=== PATIENT | female | born 1980 | race Caucasian/White ===

== ENCOUNTER 2019-12-19 09:59 | Outpatient (CLI) | payer OTHER, SELFPAY | END 2019-12-19 10:00 | disposition home or self-care (01) | DX: H92.03 Otalgia, bilateral (principal); Z96.22 Myringotomy tube(s) status; H91.8X3 Other specified hearing loss, bilateral | CPT/HCPCS: 92557; 92567 ==

== ENCOUNTER 2021-07-03 10:35 | Emergency (ER) | payer OTHER, SELFPAY ==
--- NOTE | ~2021-07-03 | XR_ITS ---
EXAMINATION: XR humerus RT EXAM DATE: 07/03/2021 11:18 INDICATION: rt humerus pain s/p fall 2 days ago. TECHNIQUE: Frontal and lateral projections of the right humerus. Correlation is made to right elbow exam same date. FINDINGS: There are no acute right humerus fractures or dislocations identified. There is no subcu taneous gas. The soft tissue is unremarkable. There are no radiopaque foreign bodies. IMPRESSION: 1. XR humerus RT exam without acute osseous findings. Reviewed, dictated and finalized at location A.
--- NOTE | ~2021-07-03 | XR_ITS ---
EXAMINATION: XR elbow RT min 3V EXAM DATE: 07/03/2021 10:58 INDICATION: rt post elbow pain s/p fall 2 days ago. TECHNIQUE: Right elbow frontal, lateral with flexion, and oblique projections obtained and reviewed. There is no prior study for comparison. FINDINGS: Right elbow anterior humeral line intact. There are no acute fractures or dislocations trip ntified. There is no subcutaneous gas. The soft tissue is unremarkable. There are no radiopaque f oreign bodies. IMPRESSION: 1. Right elbow exam without acute osseous findings. Reviewed, dictated and finalized at location A.
[2021-07-03 10:43] VITALS: BP 114/73; PULSE 87; RESP 16; TEMP 36.4; O2SAT 99
--- NOTE | 2021-07-03 10:44 | ED.UPPEXIN ---
HPI - Extremity Injury (Upper) General Chief Complaint: Extremity Injury, Upper Stated Complaint: elbow/forearm pain rt Time Seen by Provider: 07/03/21 11:00 Related Data Home Medications Medication Instructions Recorded Confirmed alprazolam 07/03/21 ipratropium bromide [Atrovent HFA] INHALATION 07/03/21 modafinil mg 07/03/21 Allergies Allergy/AdvReac Type Severity Reaction Status Date / Time No Known Allergies Allergy Unverified 06/07/19 14:58 Course Vital Signs Vital signs: Vital Signs Temperature 97.6 F 07/03/21 10:43 Pulse Rate 87 07/03/21 10:43 Respiratory Rate 16 07/03/21 10:43 Blood Pressure 114/73 07/03/21 10:43 Pulse Oximetry 99 07/03/21 10:43 Temperature 97.6 F 07/03/21 10:43 Pulse Rate 87 07/03/21 10:43 Respiratory Rate 16 07/03/21 10:43 Blood Pressure 114/73 07/03/21 10:43 Pulse Oximetry 99 07/03/21 10:43 Discharge Plan Discharge Clinical Impression: Contusion of elbow Qualifiers: Encounter type: initial encounter Laterality: right Qualified Code(s): S50.01XA - Contusion of right elbow, initial encounter Patient Disposition: Home, Self-Care Condition: Stable Instructions: Antibiotic Form, Contusion in Adults (ED), R.I.C.E. Treatment (ED) Additional Instructions: Rest, ice and elevate every 2-3 hours for 20 minutes Try to move the elbow several times an hour while awake. Try not to keep it locked in 1 position this can cause more pain and longer healing process Take ibuprofen as needed for pain 3 times a day Follow-up with your primary care provider this week New or worsening symptoms go to the ER Patient Language: Sri Lankan Prescriptions: New ibuprofen 600 mg tablet 600 mg PO TID PRN (Reason: pain) Qty: 30 RF: 0 No Action alprazolam 1 mg tablet RF: 0 Atrovent HFA 17 mcg/actuation HFA aerosol inhaler INHALATION RF: 0 modafinil 200 mg tablet RF: 0 Follow-up/Referrals: Callie,Liat Teran MD [Primary Care Provider] - 3 Days Time of Disposition: 11:32
[2021-07-03 10:46] VITALS: BP 114/73; PULSE 87; RESP 16; TEMP 36.4; O2SAT 99
--- NOTE | 2021-07-03 11:11 | ED.UPPEXIN ---
HPI - Extremity Injury (Upper) General Chief Complaint: Extremity Injury, Upper Stated Complaint: elbow/forearm pain rt Time Seen by Provider: 07/03/21 11:00 Source: patient and RN notes reviewed Mode of arrival: ambulatory Limitations: no limitations History of Present Illness HPI narrative: 41-year-old female presents to the [facility] with complaints of right upper arm pain and right elbow pain with swelling and bruising since Sunday. States that she she tripped over her dog and hit her elbow into a door frame. Decreased range of motion secondary to pain and swelling. Full range of motion of the shoulder and wrist. Strong machine sneller. Tenderness starts mid humerus all the way to the posterior elbow. No open wounds Related Data Home Medications Medication Instructions Recorded Confirmed alprazolam 07/03/21 ipratropium bromide [Atrovent HFA] INHALATION 07/03/21 modafinil mg 07/03/21 Allergies Allergy/AdvReac Type Severity Reaction Status Date / Time No Known Allergies Allergy Unverified 06/07/19 14:58 Review of Systems Review of Systems: All systems reviewed & are unremarkable except as noted in HPI and below Constitutional: Constitutional: Reports no additional constitutional complaints Eyes: Eyes: Reports no additional eye complaints ENT: Reports system reviewed and no additional complaints, except as documented Cardiovascular: Cardiovascular: Reports no additional cardiovascular complaints Respiratory: Respiratory: Reports no additional respiratory complaints Gastrointestinal: Gastrointestinal: Reports no additional gastrointestinal complaints Musculoskeletal: Musculoskeletal: Reports as per HPI, Denies myalgias, Reports arthralgias, Reports joint swelling and Denies neck pain Comments: Right humerus mid shaft to posterior elbow pain and tenderness. Swelling and bruising noted posterior elbow Integumentary/Breasts: Skin/Breast: Reports as per HPI Neurologic: Reports system reviewed and no additional complaints, except as documented Psychiatric: Psychiatric: Reports no additional psychiatric complaints Allergic/Immunologic: Allergic/Immunologic: Reports no additional allergic/immunologic complaints [facility] Past Medical History Medical History (Updated 07/03/21 @ 14:11 by Ruth Garrison) Depression with anxiety Surgical History Surgical History (Updated 07/03/21 @ 14:12 by Ruth Garrison) No significant past surgical history Social History Social History (Updated 07/03/21 @ 14:12 by Ruth Garrison) Living arrangements: with family Gender identity (if verbalized by the patient): Female Comments At the time of my signature, I reviewed and agree with the nursing past medical, surgical, social, and family history. There is no relevant family history pertinent to the patient complaint. Exam Const: General: cooperative, healthy appearing, comfortable, no acute distress, well developed and alert HENMT: Head: normal to inspection General nose exam: Normal external nose present Face and sinus: normal facial exam Mouth: Yes Normal oral and palatal mucosa present and Yes lip normal Eyes: General: appearance normal, both eyes and all related structures Alignment and Position: alignment normal Neck: Neck: normal visual inspection, full ROM and no lymphadenopathy Chest: Chest palpation & inspection: normal inspection of the chest Resp: Effort & Inspection: normal respiratory effort, able to speak in complete sentences and normal respiratory pattern Cardio: Palpation: normal PMI Rate: regular rate Back/Spine/Pelvis: Back: no CVA tenderness Cervical Spine: normal cervical lordosis Thoracic/Lumbar Spine: thoracic and lumbar spine normal to inspection Skin: General skin exam: normal color and ecchymosis (right posterior elbow) Lesions: no lesions Rashes: no rashes Trauma: no lacerations or abrasions Wounds: no wounds Neuro: General: patient oriented x3 and gait normal Speech: kendall
--- NOTE | 2021-07-03 11:16 | PC.NURSE ---
additional xray done and back in room.
== END 2021-07-03 11:34 | disposition home or self-care (01) ==
PROVIDERS: Emergency Provider Nurse Practitioner; PCP Family Medicine
DX: S50.01XA Contusion of right elbow, initial encounter (principal); W01.0XXA Fall on same level from slipping, tripping and stumbling without subsequent striking against object, initial encounter
CPT/HCPCS: 73060; 73080; 99213; A4565; G0463

== ENCOUNTER 2022-02-23 09:22 | Emergency (ER) | payer OTHER, SELFPAY ==
[2022-02-23 09:32] VITALS: BP 106/69; PULSE 93; RESP 16; TEMP 37.2; O2SAT 95
--- NOTE | 2022-02-23 09:42 | ED.URI ---
HPI - URI/Sore Throat General Chief Complaint: Fever Stated Complaint: Fever Time Seen by Provider: 02/23/22 09:42 Source: patient Mode of arrival: ambulatory Limitations: no limitations History of Present Illness HPI Narrative: 41-year-old female presents with complaint of nasal congestion, headache, fever 102 Fahrenheit that started this morning. Patient is currently taking amoxicillin for approximately 1 week for sinus infection. Reports she did not feel this bad with her sinus infection. Denies nausea vomiting diarrhea. Reports that she is feeling very tired. No cough or shortness of breath. All systems reviewed and negative except as noted above. Related Data Home Medications Medication Instructions Recorded Confirmed albuterol sulfate 90 mcg/actuation 1 puff INHALATION Q4H PRN 07/13/21 02/23/22 aerosol inhaler amoxicillin-pot clavulanate 1 tablet PO BID 02/23/22 02/23/22 phentermine 37.5 mg PO DAILY 02/23/22 02/23/22 Allergies Allergy/AdvReac Type Severity Reaction Status Date / Time No Known Allergies Allergy Verified 02/23/22 10:14 Review of Systems Review of Systems: CONSTITUTIONAL: Reports fever, chills, or sweats. EYES: Denies visual changes, redness, or discharge. ENT: Reports rhinorrhea, congestion. Denies sore throat, or otalgia. CARDIOVASCULAR: Denies chest pain, palpitations, or edema. RESPIRATORY: Denies cough or dyspnea. GASTROINTESTINAL: Denies abdominal pain, nausea, vomiting, or diarrhea. GENITOURINARY: Denies dysuria or hematuria. SKIN: Denies rash or itching. MUSCULOSKELETAL: Denies back pain, joint pain, or myalgia. NEUROLOGIC: Denies headache, numbness, or weakness. PSYCHIATRIC: Denies anxiety or depression. All other systems reviewed are negative, except as documented in HPI. [facility] Past Medical History Medical History Depression with anxiety Surgical History Surgical History No significant past surgical history Family History Family History Mother Hypertension Thyroid disorder Sibling Asthma Grandparent Lymphoma Cerebrovascular accident Depression Grandparent Alcoholism Lung cancer Social History Social History Smoking status: Current every day smoker Tobacco type: cigarettes Alcohol intake: current Substance use: current Gender identity (if verbalized by the patient): Female Comments At time of signature, agree with nursing past medical, surgical, social and family history. There is no relevant family history pertinent to the presenting complaint. Exam Narrative: GENERAL: This is a well-nourished, well-developed patient, patient is ill-appearing but in no distress. HEAD: normocephalic, atraumatic. EYES: PERRL. Sclera clear/white. Vision is grossly intact. EARS: External ears normal, auditory canals clear and without drainage, TMs normal without perforation. Hearing grossly intact. NOSE: External nose normal with clear nasal drainage. THROAT: Mucous membranes moist, posterior pharynx clear. NECK: Neck supple, non-tender without lymphadenopathy, masses or thyromegaly. CARDIOVASCULAR: Regular rate and rhythm without murmurs, gallops, or rubs. RESPIRATORY: Clear to auscultation. Breath sounds equal bilaterally. No wheezes, rales, or rhonchi. SKIN: warm, Dry, intact with no suspicious lesions or rash, good texture and turgor. NEURO: awake, alert, and oriented to person, place and time. There were no obvious focal neurologic abnormalities. EXTREMITIES: Normal range of motion to all extremities. Course Course Level of Care: Express Care Visit Vital Signs Vital signs: Vital Signs Temperature 37.2 C 02/23/22 09:32 Pulse Rate 93 02/23/22 09:32 Respiratory Rate 16 02/23/22 09:32 Blood Pressure 106/69 05
== END 2022-02-23 10:21 | disposition home or self-care (01) ==
PROVIDERS: Emergency Provider Nurse Practitioner Family; PCP Family Medicine
DX: U07.1 COVID-19 (principal); F17.200 Nicotine dependence, unspecified, uncomplicated
CPT/HCPCS: 87426; 87804; 99213; C9803; G0463

== ENCOUNTER 2022-03-29 01:21 | Day surgery (SDC) | payer OTHER, SELFPAY ==
[2022-03-24 12:12] VITALS: BMI 29.2
[2022-03-29] VITALS (11 sets, daily range): BP systolic 112–131; BP diastolic 64–82; PULSE 65–77; RESP 13–23; TEMP 36.1; O2SAT 96–100; BMI 29.8
--- NOTE | ~2022-03-29 | XR_ITS ---
EXAMINATION: XR ERCP DATE: 03/29/2022 10:10 CDT INDICATION: POSSIBLE STONE, PANCREATIC STENT INSERTED . TECHNIQUE: 14 fluoroscopic images of the upper abdomen were obtained during ERCP. I was not present d uring the procedure. Fluoroscopy exposure time was 817 seconds. Cumulative dose 224.9 mGy. COMPARISON: None. FINDINGS: Endoscopic catheterization of the pancreatic and common bile ducts. No filling defect definitely iden tified in these fluoroscopic images. A balloon is inflated in the upstream common bile duct and withd rawn over subsequent images. Truncated cystic duct status post cholecystectomy. A pancreatic stent is present in the final image. IMPRESSION: Fluoroscopic documentation of ERCP. Reviewed, dictated and finalized at location K.
[2022-03-29] MEDS: LACTATED RINGERS 1,000 ML 150 ML IV CONT ×2 (09:49→14:33)
--- NOTE | 2022-03-29 10:09 | WPDANESEPPF ---
Anes - Initial Pre Proc Eval Procedure: Operation Date: 03/29/22 10:45 Proposed Procedures p Endoscopic Retro Cholangiopancreatogram - Tolu Restrepo MD Date/Time: 03/29/22 10:09 Surgeon: Tolu Restrepo MD Pre Op Diagnosis: bile duct stone Patient Data Age: 41 Gender: F Height: 1.68 m Weight: 83.8 kg Last Vital Signs Temp 97 F L 03/29/22 09:30 Pulse 71 03/29/22 09:30 Resp 18 03/29/22 09:30 BP 112/70 03/29/22 09:30 Pulse Ox 100 03/29/22 09:30 O2 Del Method Room Air 03/29/22 09:30 Allergies Allergy/AdvReac Type Severity Reaction Status Date / Time No Known Allergies Allergy Verified 03/29/22 09:35 Home Medications Medication Instructions Recorded Confirmed Type albuterol sulfate 90 mcg/actuation 1 puff inhalation Q4H PRN 07/13/21 03/29/22 History aerosol inhaler Shortness Of Breath phentermine 37.5 mg tablet 37.5 mg PO DAILY 02/23/22 03/29/22 History Patient hx anesthesia problems: none Family hx anesthesia problems: none Results Review: All pre-operative results and documents have been reviewed as part of the pre-operative evaluation. [facility] Past Medical History Medical History Depression with anxiety Non-specific filling defect of common bile duct RUQ pain Surgical History Surgical History No significant past surgical history S/P hernia surgery Family History Family History Mother Hypertension Thyroid disorder Sibling Asthma Grandparent Lymphoma Cerebrovascular accident Depression Grandparent Alcoholism Lung cancer Social History Social History Smoking packs per day: 1.25 Smoking cigarettes per day: 25.0 Years smoked: 20 Smoking pack-years: 25.00 Smoking status: Former smoker Tobacco type: cigarettes Second hand tobacco smoke exposure: No Smoking end date: 03/27/22 Additional smoking assessment comments: recently quit smoking 28 hours ago Alcohol intake: current Drinks per week: 2 Alcohol use details: socially Substance use: current Substance use type: marijuana Other substance usage details: 4-5 times weekly Living arrangements: with family Additional living arrangements comments: spouse and children Gender identity (if verbalized by the patient): Female Spiritual care concerns: No Anes - Eval Final PreProcedure Day of Procedure 03/29/22 10:09 Patient weight: overweight Heart: regular rate and rhythm Lungs: clear to auscultation Airway: Mallampati scale class II Neurological: alert and oriented Last oral intake: >/= 8 hours ASA classification: II Emergent: no Anesthetic plan: proceed Anesthesia type and monitoring: general ETT and standard monitoring Results Review: All pre-operative results and documents have been reviewed as part of the pre-operative evaluation. Informed Consent: The patient's anesthetic plan and its attendant risks and benefits were discussed with the patient/family/POA. Questions were solicited and answers provided to the satisfaction of the patient/family/POA.
--- NOTE | 2022-03-29 10:13 | WPDHPUPDATE1 ---
History and Physical Update Update Date/Time: 03/29/22 10:13 History and Physical has been reviewed, including an updated exam of the patient. There are NO changes in the patient's condition. Risks, benefits, and alternatives have been discussed and questions answered. Patient agrees to proceed with procedure.
[2022-03-29] MEDS: INDOMETHACIN 50 MG SUPP.RECT RECTAL (10:49)
[2022-03-29] MEDS: fentaNYL CITRATE INJ (*CRX) 100 MCG/2 ML VIAL 25 MCG IV PUSH (13:56)
--- NOTE | 2022-03-29 14:05 | SUR.PHASEII ---
Patient complained of chest tightness with a pain scale rating of 7/10. Informed Dr. Jansen of patient's condition. Vitals stable. 3 lead EKG appears to be in sinus rhythm. Patient appears to be very anxious. Has history of smoking tobacco and recently quit. 25mcg of fentanyl ordered per Dr. Jansen. Medication administered and patient is now resting comfortably in bed and tolerating fluids.
--- NOTE | 2022-03-29 14:23 | SUR.PHASEII ---
After administering 25 mcg of fentanyl, patient still complained of 7/10 chest tightness and pain radiating to back. LEANN Denson encouraged patient to use at home inhaler. Patient has relief and now reports pain of 2/10. Encouraged to keep belching to get rid of air from procedure. Patient states she feels well enough to go home. Vitals stable.
--- NOTE | 2022-03-30 09:12 | WPDANESPN ---
Anes - Prog Note Post-Op Date/Time: 03/30/22 09:12 Cardiovascular status: normal Respiratory status: normal Airway patency: baseline Mental status: baseline Post-Op hydration status: normal Vital Signs: Last Vital Signs Temp 97.0 F L 03/29/22 12:55 Pulse 70 03/29/22 14:25 Resp 19 03/29/22 14:25 BP 122/71 03/29/22 14:25 Pulse Ox 99 03/29/22 14:25 O2 Del Method Room Air 03/29/22 14:25 O2 Flow Rate 4 03/29/22 13:25 Pain Score (VAS): 10/31 Post-procedural complaints: none Patient Feedback: Patient satisfied with anesthetic care.
== END 2022-03-29 14:35 | disposition home or self-care (01) ==
PROVIDERS: PCP Family Medicine; Visit Provider Internal Medicine Gastroenterology
PROC: (CPT 43260; principal; 2022-03-29 10:45)
DX: K83.8 Other specified diseases of biliary tract (principal); F12.90 Cannabis use, unspecified, uncomplicated; F17.210 Nicotine dependence, cigarettes, uncomplicated; Z98.890 Other specified postprocedural states; Z87.19 Personal history of other diseases of the digestive system
CPT/HCPCS: 43274; 74329; A9270; C2625; J1100; J2405; J2704; J3010; J7120

== ENCOUNTER 2022-03-30 07:39 | Inpatient (IN) | payer OTHER, SELFPAY ==
[2022-03-30] VITALS (14 sets, daily range): BP systolic 110–130; BP diastolic 70–79; PULSE 55–82; RESP 11–26; TEMP 36.3–36.9; O2SAT 94–99; BMI 32.0
--- NOTE | ~2022-03-30 | XR_ITS ---
EXAMINATION: XR chest 2V 03/30/2022 08:56 INDICATION: Right-sided chest pain PROCEDURE: 2 view chest COMPARISON: No prior studies for comparison. FINDINGS: The lungs are clear. The cardiomediastinal silhouette is within normal limits. There are no pleural effusions. There is no pneumothorax suspected. IMPRESSION: 1: NO ACUTE CARDIOPULMONARY DISEASE. Reviewed, dictated and finalized at location B.
--- NOTE | ~2022-03-30 | CT_ITS ---
EXAMINATION: CT abdomen pelvis wo con DATE: 03/30/2022 09:34 INDICATION: Biliary stent dysfunction. Right upper quadrant pain status post recent ERCP. TECHNIQUE: Computed tomography (CT) of the abdomen and pelvis was performed without intravenous contr ast. The dose-length product was 680.20 mGy-cm. Automated exposure control and iterative reconstructi on technique were employed. COMPARISON: None. FINDINGS: Lung bases are unremarkable. Heart size normal. No significant pleural or pericardial effus ion. No significant vascular abnormality. Mildly enlarged retroperitoneal lymph nodes, likely reactiv e. There are surgical changes consistent with previous ventral abdominal wall hernia repair and teofilo cystectomy. No biliary stent is identified. There is hepatomegaly. No significant abnormality of the spleen, pancreas, adrenal glands or kidneys. There is a small fat-containing right inguinal hernia. N onobstructive bowel gas pattern. No free air or free fluid. No abnormal pelvic masses or fluid collec tions. IMPRESSION: 1. No acute abdominal abnormality. Reviewed, dictated and finalized at location B.
--- NOTE | ~2022-03-30 | CT_ITS ---
EXAMINATION: CT abdomen pelvis wo con DATE: 04/03/2022 08:36 INDICATION: Acute pancreatitis. Generalized abdominal pain. TECHNIQUE: Computed tomography (CT) of the abdomen and pelvis was performed without intravenous contr ast. Automated exposure control and iterative reconstruction technique were employed. The dose-length product was 890.53 mGy-cm. COMPARISON: CT abdomen and pelvis 03/30/2022 FINDINGS: There are small pleural effusions, left worse than right. There are peripheral airspace opa cities in the lower lobes. There is smooth septal thickening bilaterally, consistent with pulmonary e ar. The heart size is normal. No pericardial effusion. The liver and spleen are normal. There are c hanges of cholecystectomy. There is fat stranding around the pancreas, consistent with acute intersti tial pancreatitis. There are changes of ventral hernia repair. The adrenal glands and kidneys are nor mal. There is no urolithiasis. There is a right inguinal hernia containing fat. There is a pancreatic stent in the lumen of the sigmoid colon. There are no dilated loops of bowel. The appendix is normal . There are no pathologically enlarged lymph nodes. There is a small volume of ascites. There is mode rate lower lumbar spondylosis. IMPRESSION: 1. Acute interstitial pancreatitis. Pancreatic stent now in the lumen of the sigmoid colon. 2. Small volume of ascites. 3. Small pleural effusions. 4. Mild pulmonary edema. 5. Peripheral airspace opacities in the lower lobes of the lungs, consistent with atelectasis versus pneumonia. Reviewed, dictated and finalized at location B. IMPRESSION: 1. Acute interstitial pancreatitis. Pancreatic stent now in the lumen of the si gmoid colon. 2. Small volume of ascites. 3. Small pleural effusions. 4. Mild pulmonary edema. 5. Peripheral airspace opacities in the lower lobes of the lungs, consistent wi th atelectasis versus pneumonia.
--- NOTE | 2022-03-30 07:51 | ECG_ITS ---
Measurements Intervals [place] Rate: 81 P: 73 ID: [id number] QRS: 68 QRSD: 90 T: 42 QT: 346 QTc: 402 Interpretive Statements SINUS RHYTHM NO PREVIOUS ECG AVAILABLE FOR COMPARISON Electronically Signed On 03-30-2022 20:32:26 CDT by Melania Dorado M.D.
--- NOTE | 2022-03-30 07:59 | PC.NURSE ---
Patient off unit to Radiology for CXR.
[2022-03-30 08:17] LABS: Basophils Absolute Auto 0.1 K/mm3 (0.0-0.1); Basophils Percent Auto 0.3 % (0.2-1.2); Eosinophils Percent Auto 0.2 % (0-4.4); Hematocrit 43.3 % (37.0-47.0); Hemoglobin 15.1 g/dL (12.0-15.0); Immature Granulocyte Absolute 0.17 K/mm3 (0.00-0.031); Immature Granulocyte Percent A 0.8 % (0-0.5); Lymphocytes Absolute Auto 2.91 K/mm3 (0.9-3.2); Lymphocytes Percent Auto 13.3 % (18.3-44.2); Mean Corpuscular HGB Conc 34.9 g/dl (32-36); Mean Corpuscular Hemoglobin 32.8 pg (26-34); Mean Corpuscular Volume 93.9 fl (80-100); Mean Platelet Volume 9.2 fl (7.4-10.4); Monocytes Absolute Auto 1.8 K/mm3 (0.1-0.6); Monocytes Percent Auto 8.2 % (2.6-8.5); Neutrophils Absolute Auto 16.9 K/mm3 (1.3-6.7); Neutrophils Percent Auto 77.2 % (45.5-73.1); Platelet Count Result 284 k/mm3 (150-375); Red Blood Count 4.61 M/mm3 (4.2-5.4); Red Cell Distribution Width 12.4 % (11.5-14.5); White Blood Count 21.8 K/mm3 (4.5-10.0)
[2022-03-30 08:31] LABS: Alanine Aminotransferase 210 U/L (6-35); Albumin Level 4.2 g/dL (3.5-5.1); Alkaline Phosphatase 116 U/L (38-126); Anion Gap 6 mmol/L (8-16); Aspartate Amino Transferase 338 U/L (14-36); Bilirubin,Total 1.6 mg/dL (0.2-1.3); Blood Urea Nitrogen 12 mg/dL (7-17); Carbon Dioxide 28 mmol/L (22-30); Chloride 104 mmol/L (98-107); Estimated CRCL calculation 96 ml/min; Estimated Glomerular Filt Rate > 60; Glucose 138 mg/dL (65-110); Potassium 3.8 mmol/L (3.4-5.0); Sodium 138 mmol/L (137-145)
[2022-03-30] MEDS: SODIUM CHLORIDE 0.9% IV 1,000 ML 999 ML IV CONT (08:31)
[2022-03-30] MEDS: MORPHINE SULFATE (*CRX) 4 MG/ML INJ IV PUSH ×3 (08:31→14:41)
[2022-03-30] MEDS: ONDANSETRON INJ 4 MG/2 ML VIAL IV PUSH ×2 (08:32→23:05)
[2022-03-30 08:46] LABS: Troponin I < 0.012 ng/mL (0.000-0.034)
--- NOTE | 2022-03-30 08:48 | PC.NURSE ---
Patient off unit to Radiology.
[2022-03-30 09:10] LABS: Lipase > 40000 U/L (23-300)
--- NOTE | 2022-03-30 09:23 | ED.ABDPAIN ---
HPI - Abdominal Pain General Chief Complaint: Abdominal Pain Stated Complaint: RUQ pain, s/p ERCP Time Seen by Provider: 03/30/22 07:40 History of Present Illness HPI narrative: Patient is a 41-year-old female who presents ER with chest pain epigastric pain. Patient underwent ERCP yesterday with placement of biliary stent. Dr. Hernandez who is her GI physician. Since going home she has developed pain in her chest going around her right side towards the back. She is on a liquid diet. No nausea or vomiting. No fevers or chills or sweats. Patient is found no alleviating factors. Related Data Home Medications Medication Instructions Recorded Confirmed albuterol sulfate 90 mcg/actuation 1 puff inhalation Q4H PRN 07/13/21 03/30/22 aerosol inhaler Shortness Of Breath phentermine 37.5 mg tablet 37.5 mg PO DAILY 02/23/22 03/30/22 Allergies Allergy/AdvReac Type Severity Reaction Status Date / Time No Known Allergies Allergy Verified 03/29/22 09:35 Review of Systems Review of Systems: All systems reviewed & are unremarkable except as noted in HPI and below Constitutional: Constitutional: Denies chills and Denies fever(s) ENT: Denies nasal congestion and Denies sore throat Cardiovascular: Cardiovascular: Reports chest pain, Denies rapid heart rate and Denies radiating jaw, neck or arm pain Respiratory: Respiratory: Denies cough and Denies dyspnea Gastrointestinal: Gastrointestinal: Reports abdominal pain, Denies nausea and Denies vomiting PMFSH Past Medical History Medical History Asthma COVID-19 (02/2022) Depression with anxiety Obstructive sleep apnea Tobacco use Surgical History Surgical History (Updated 03/30/22 @ 15:45 by Kita Blankenship PA-C) History of arthroscopy of right knee History of bladder surgery History of cholecystectomy History of hysterectomy History of tubal ligation History of tympanostomy tube placement History of umbilical hernia repair Family History Family History Mother Hypertension Thyroid disorder Sibling Asthma Grandparent Lymphoma Cerebrovascular accident Depression Grandparent Alcoholism Lung cancer Social History Social History (Updated 03/30/22 @ 15:46 by Kita Blankenship PA-C) Social History: Surrogate decision maker: Dario Simpson, spouse. Code status: Full code. Smoking packs per day: 1.25 Smoking cigarettes per day: 25.0 Years smoked: 20 Smoking pack-years: 25.00 Smoking status: Former smoker Tobacco type: cigarettes Second hand tobacco smoke exposure: No Alcohol intake: current Drinks per week: 2 Alcohol use details: socially Substance use: current Substance use type: marijuana Other substance usage details: 4-5 times weekly Additional living arrangements comments: Lives in [place] with spouse and children. Spiritual care concerns: No Exam Narrative: GENERAL: Uncomfortable-appearing, well-nourished, and in no acute distress. HEAD: Normocephalic, atraumatic. EYES: PERRL and EOMI. CHEST: Clear to auscultation. No respiratory distress. HEART: Regular rate and rhythm. Normal peripheral pulses. ABDOMEN: Soft, epigastric tenderness with guarding, nondistended, normal active bowel sounds. EXTREMITIES: Normal range of motion. No edema. SKIN: Warm, dry, no rash. NEURO: Alert and oriented x3. PSYCH: Normal mood and affect. Course Course Emergency Course: GI consulted. Admit to hospitalist service. Started on Zosyn given elevated white blood cell count. At risk for cholangitis but likely postprocedural pancreatitis. Vital Signs Vital signs: Vital Signs Temperature 98.3 F 03/30/22 07:46 Pulse Rate 80 03/30/22 07:46 Respiratory Rate 20 03/30/22 07:46 Blood Pressure 130/75 03/30/22 07:46 Pulse Oximetry 99 03/30/22 07:46 Oxygen Delivery Room Air 03/30/22 07:46 Temperature 97.3 F L 03/30/22 14:00 Pulse Rat
[2022-03-30 09:39] LABS: Lactic Acid Reflex 1.5 mmol/L (0.7-2.0)
[2022-03-30] MEDS: HYDROmorphone HCL INJ (*CRX) 1 MG/ML SYR IV PUSH ×2 (10:09→23:05)
[2022-03-30 11:37] LABS: Troponin I < 0.012 ng/mL (0.000-0.034)
[2022-03-30] MEDS: SODIUM CHLORIDE 0.9% IV 1,000 ML 200 ML IV CONT ×2 (12:30→17:56)
[2022-03-30 14:53] LABS: Troponin I < 0.012 ng/mL (0.000-0.034)
--- NOTE | 2022-03-30 15:30 | PM.IMHP ---
H&P: HPI History of Present Illness Date/Time: 03/30/22 15:30 Chief Complaint: Abdominal and chest pain. Narrative: This is a 41-year-old female with history of multiple ventral hernia repairs, asthma, and a recent diagnosis of obstructive sleep apnea who presented to the emergency department via EMS from home for evaluation of abdominal and chest pain. She was referred to Dr. Restrepo after she was found to have a possible filling defect in the common hepatic duct on imaging obtained at an outside facility for evaluation of abdominal pain. She had an ERCP done as an outpatient yesterday with sphincterotomy and deployment of a pancreatic stent to prevent pancreatitis and facilitate bile duct cannulation. No filling defect, stone, or stricture was noted and only a small amount of sludge was seen in an otherwise clear bile duct. Last evening she was feeling gas-like discomfort in her chest and at about 03:00 she developed intense pain in the upper abdomen, radiating to the right upper quadrant and around to the back. It has been nearly constant since the outset and she has not found any significant alleviating factors. Aggravating factors include palpation and movement. Vital signs were stable on arrival to the emergency department. Pertinent labs include a white blood cell count of 21.8, total bilirubin 1.6, AST 338, ALT 210, alkaline phosphatase 116, and lipase greater than 40,000. CT of the abdomen and pelvis showed no acute abnormalities and specifically no abnormalities were noted of the pancreas. She is being admitted in this setting for further treatment and evaluation. At this time she is a bit more comfortable after receiving Dilaudid. She denies fever, chills, sweats, shortness of breath, nausea, vomiting, and diarrhea. Review of Systems Review of Systems: Twelve systems were reviewed. She has been having problems with ear pain and is scheduled to have bilateral tubes placed per Dr. Perez for serous otitis media bilaterally. [facility], [facility] Past Medical History Medical History Asthma COVID-19 (02/2022) Depression with anxiety Obstructive sleep apnea Tobacco use Surgical History Surgical History History of arthroscopy of right knee History of bladder surgery History of cholecystectomy History of hysterectomy History of tubal ligation History of tympanostomy tube placement History of umbilical hernia repair Family History Family History Mother Hypertension Thyroid disorder Sibling Asthma Grandparent Lymphoma Cerebrovascular accident Depression Grandparent Alcoholism Lung cancer Social History Social History (Updated 03/30/22 @ 21:14 by Kita Blankenship PA-C) Social History: Surrogate decision maker: Dario Simpson, spouse. Code status: Full code. Smoking packs per day: 1.25 Smoking cigarettes per day: 25.0 Years smoked: 20 Smoking pack-years: 25.00 Smoking status: Former smoker Tobacco type: cigarettes Second hand tobacco smoke exposure: No Alcohol intake: current Drinks per week: 2 Alcohol use details: socially Substance use: current Substance use type: marijuana Other substance usage details: 4-5 times weekly Additional living arrangements comments: Lives in [place] with spouse and children. Spiritual care concerns: No Meds Home Medications and Allergies Home Medications Medication Instructions Recorded Confirmed Type albuterol sulfate 90 mcg/actuation 1 puff inhalation Q4H PRN 07/13/21 03/30/22 History aerosol inhaler Shortness Of Breath phentermine 37.5 mg tablet 37.5 mg PO DAILY 02/23/22 03/30/22 History Allergies Allergy/AdvReac Type Severity Reaction Status Date / Time No Known Allergies Allergy Verified 03/29/22 09:35 Vital Signs Vital Signs - 24 hr 03/30/22 07:46 03/30/22 07:56 03/30/22 09:11 Temperature 98.
[2022-03-30] MEDS: HYDROmorphone HCL INJ (*CRX) 1 MG/ML SYR 0.5 MG IV PUSH ×2 (16:59→20:18)
[2022-03-31] MEDS: SODIUM CHLORIDE 0.9% IV 1,000 ML 200 ML IV CONT ×4 (00:01→19:56)
[2022-03-31] MEDS: HYDROmorphone HCL INJ (*CRX) 1 MG/ML SYR IV PUSH ×6 (02:02→21:44)
[2022-03-31] MEDS: KETOROLAC 30 MG/ML VIAL (*BKC) IV PUSH (04:36)
[2022-03-31 05:15] VITALS: BP 147/82; PULSE 62; RESP 16; TEMP 36.1; O2SAT 96
--- NOTE | 2022-03-31 06:06 | PCRCNOTE ---
patient stated that she completed a sleep study, but the home unit is on back-order; She refused use of the hospital unit
[2022-03-31 06:07] VITALS: O2SAT 96
[2022-03-31 06:19] LABS: Basophils Percent Auto 0.3 % (0.2-1.2); Eosinophils Percent Auto 0.2 % (0-4.4); Hematocrit 37.9 % (37.0-47.0); Hemoglobin 12.7 g/dL (12.0-15.0); Immature Granulocyte Absolute 0.12 K/mm3 (0.00-0.031); Immature Granulocyte Percent A 0.9 % (0-0.5); Lymphocytes Absolute Auto 1.54 K/mm3 (0.9-3.2); Mean Corpuscular HGB Conc 33.5 g/dl (32-36); Mean Corpuscular Hemoglobin 32.7 pg (26-34); Mean Corpuscular Volume 97.7 fl (80-100); Mean Platelet Volume 9.7 fl (7.4-10.4); Monocytes Percent Auto 7.4 % (2.6-8.5); Neutrophils Absolute Auto 11.2 K/mm3 (1.3-6.7); Neutrophils Percent Auto 80.2 % (45.5-73.1); Platelet Count Result 226 k/mm3 (150-375); Red Blood Count 3.88 M/mm3 (4.2-5.4); Red Cell Distribution Width 13.1 % (11.5-14.5)
[2022-03-31 06:49] LABS: Alanine Aminotransferase 455 U/L (6-35); Albumin Level 3.5 g/dL (3.5-5.1); Alkaline Phosphatase 192 U/L (38-126); Anion Gap 4 mmol/L (8-16); Aspartate Amino Transferase 263 U/L (14-36); Bilirubin,Total 4.3 mg/dL (0.2-1.3); Blood Urea Nitrogen 11 mg/dL (7-17); CRP 1.6 mg/dL (<1.0); Calcium 7.7 mg/dL (8.4-10.2); Carbon Dioxide 26 mmol/L (22-30); Chloride 107 mmol/L (98-107); Estimated CRCL calculation 111 ml/min; Estimated Glomerular Filt Rate > 60; Glucose 132 mg/dL (65-110); Potassium 3.9 mmol/L (3.4-5.0); Sodium 137 mmol/L (137-145)
[2022-03-31] MEDS: ONDANSETRON INJ 4 MG/2 ML VIAL IV PUSH (07:52)
[2022-03-31 08:00] VITALS: O2SAT 96
[2022-03-31 08:13] LABS: Lipase 9660 U/L (23-300)
[2022-03-31 09:20] VITALS: O2SAT 94
--- NOTE | 2022-03-31 13:03 | PCCCNOTE ---
On 03/31/22, the student, [Irene Garcia], provided care and completed [facility] documentation on this patient. I have reviewed the student's documentation and agree with the findings.
--- NOTE | 2022-03-31 13:16 | WPDGICN ---
Assessment and Plan Assessment and plan (1) Acute pancreatitis after endoscopic retrograde cholangiopancreatography (ERCP): Code(s): K91.89 - Other postprocedural complications and disorders of digestive system; K85.90 - Acute pancreatitis without necrosis or infection, unspecified Status: Acute Assessment and Plan: unfortunately patient developed pancreatitis after ercp despite using pancreatic stent and indomethacin as preventive measures she is npo status- ok to have ice chips supportive care, pain control, monitor liver enzymes (2) Elevated LFTs: Code(s): R79.89 - Other specified abnormal findings of blood chemistry Status: Acute Assessment and Plan: from pancreatitis and recent ercp (I did not find any filling defect or stones, performed nice sphincterotomy) continue to monitor (3) Leukocytosis: Code(s): D72.829 - Elevated white blood cell count, unspecified Status: Acute Assessment and Plan: from pancreatitis monitor (4) RUQ pain: Code(s): R10.11 - Right upper quadrant pain Status: Acute (5) History of cholecystectomy: Code(s): Z90.49 - Acquired absence of other specified parts of digestive tract Status: Acute GI Consult Note Consult date/time: 03/31/22 13:16 Reason for consult: epigastric pain, post-ERCP pancreatitis HPI: Swathi Simpson is a 41 year old female that initially came to see me last month to the office because constant pain in mid abdomen/right side for last few months. Finally outside CT scan showed possible filling defect in common hepatic duct- could be sludge or stone, liver enzymes were normal and denies previous episode of pancreatitis.?She had cholecystectomy years ago and had umbilical hernia repair with mesh x3 (apparently had adhesions). Finally she came for outpatient ERCP on 03/29/2022, I performed?sphincterotomy and deployment of a small 4Fx5cm pancreatic stent to prevent pancreatitis and facilitate bile duct cannulation (initially was difficult to cannulate bile duct). No filling defect, stone, or stricture was noted and only a small amount of sludge was seen in an otherwise clear bile duct. Patient went home but then started having upper abdominal discomfort with nausea, also bloating sensation and came to ER. She was found to have pancreatitis, leukocytosis and diagnosed with post-ERCP pancreatitis (she also received indomethacin suppository prior ERCP). She is npo status, still with abdominal pain. CT scan a/p reviewed, no acute findings. Review of Systems Review of Systems: uncomfotable because of pain Constitutional: Constitutional: Denies headache(s) and Denies weakness Eyes: Eyes: Denies blurry vision ENT: Reports Normal hearing present, Denies headache(s) and Denies neck pain Cardiovascular: Cardiovascular: Denies chest pain and Denies dyspnea Respiratory: Respiratory: Denies dyspnea Gastrointestinal: Gastrointestinal: Reports abdominal pain and Reports nausea Genitourinary: Genitourinary: Denies dysuria Musculoskeletal: Musculoskeletal: Denies neck pain Integumentary/Breasts: Skin/Breast: Denies dry skin Neurologic: Reports Normal hearing present, Denies headache(s) and Denies weakness Psychiatric: Psychiatric: Denies anxiety Endocrine: Endocrine: Denies change in body appearance Hematologic/Lymphatic: Hematologic/Lymphatic: Denies easy bleeding Allergic/Immunologic: Allergic/Immunologic: Denies urticaria PMFSH Past Medical History Medical History Asthma COVID-19 (02/2022) Depression with anxiety Obstructive sleep apnea Tobacco use Surgical History Surgical History (Updated 03/31/22 @ 13:24 by Tolu Restrepo MD) History of arthroscopy of right knee History of bladder surgery History of cholecystectomy History of hysterectomy History of tubal ligation History of tympanostomy tube placement History of umbilical hernia repair Family History Family History
--- NOTE | 2022-03-31 13:59 | PM.IMPN ---
Progress Note: A&P Assessment and Plan (1) Acute pancreatitis after endoscopic retrograde cholangiopancreatography (ERCP): Code(s): K91.89 - Other postprocedural complications and disorders of digestive system; K85.90 - Acute pancreatitis without necrosis or infection, unspecified Status: Acute Assessment and Plan: Post ERCP pancreatitis, improving, appreciate GI consultation, continue ice chips, advance diet as tolerated per GI recommendations, IV fluids (2) Leukocytosis: Code(s): D72.829 - Elevated white blood cell count, unspecified Status: Acute Assessment and Plan: White blood cell count significantly improved today, continue Zosyn, do not suspect underlying infection, will discontinue antibiotics and white count normalizes if patient continues to appear non infectious (3) Elevated LFTs: Code(s): R79.89 - Other specified abnormal findings of blood chemistry Status: Acute Assessment and Plan: Elevated LFTs likely secondary to pancreatitis, monitor (4) Tobacco use: Code(s): Z72.0 - Tobacco use Status: Acute Assessment and Plan: Smoking cessation is encouraged. (5) Obstructive sleep apnea: Code(s): G47.33 - Obstructive sleep apnea (adult) (pediatric) Status: Acute Assessment and Plan: CPAP will be provided for the patient to use while hospitalized. (6) Asthma: Code(s): J45.909 - Unspecified asthma, uncomplicated Status: Acute Assessment and Plan: No acute issues. Albuterol inhaler available as needed. Subjective Date/time seen: 03/31/22 13:59 Interval history: Patient lying in bed somewhat uncomfortable due to her abdominal pain. She is due for pain medication and apparently it is coming up from pharmacy now. She denies fevers or chills. No nausea vomiting diarrhea. She is only complaining of moderate to severe abdominal pain that is somewhat better than admission. Review of Systems Review of Systems: Twelve point review of systems was reviewed and is negative except as noted in the HPI Exam Narrative: General: Patient resting comfortably in bed, no acute distress HEENT: Atraumatic, normocephalic, mucous membranes moist CV: Regular rate and rhythm, S1, S2, no murmurs rubs or gallops noted Lungs: Clear to auscultation bilaterally, no rales or crackles noted, no wheezes, good air entry Abdomen: Diffusely tender without peritoneal signs Extremities: Normal to inspection, no edema noted Skin: No rashes noted, no lesions or wounds seen Psych: Euthymic, normal affect Neuro: Cranial nerves 2-12 grossly intact, strength 5/5 upper and lower extremities noted Objective Data Vital Signs Vital Signs: Vital Signs - 24 hr 03/30/22 14:00 03/30/22 15:49 03/30/22 20:00 Temperature 97.3 F L Pulse Rate 63 Respiratory Rate 16 Blood Pressure 123/79 Pulse Oximetry 98 98 Oxygen Delivery Room Air Room Air 03/30/22 22:00 03/31/22 05:15 03/31/22 06:07 Temperature 98.4 F 96.9 F L Pulse Rate 55 L 62 Respiratory Rate 16 16 Blood Pressure 123/70 147/82 H Pulse Oximetry 96 96 96 Oxygen Delivery Room Air 03/31/22 09:20 03/31/22 08:00 Temperature Pulse Rate Respiratory Rate Blood Pressure Pulse Oximetry 94 96 Oxygen Delivery Room Air Room Air Intake/Output Intake/Output: Intake & Output 03/28/22 03/29/22 03/30/22 03/31/22 23:59 23:59 23:59 23:59 Intake Total 3350 1150 Output Total 300 1200 Balance 3050 -50 Meds/Results Medications: Active Medications Generic Name Dose Route Start Last Admin Trade Name Freq PRN Reason Stop Dose Admin Albuterol 1 puff 03/30/22 15:50 Albuterol Sulfate (*Sp) Aerosol 1 Puff INHALATION Q4H PRN Shortness Of Breath Hydromorphone HCl 1 mg 03/30/22 23:00 03/31/22 10:56 Hydromorphone Hcl Inj (*Crx) 1 Mg/Ml Syr IV PUSH 1 mg Q3H PRN Administration Pain Rated 7-10 Pipe
[2022-03-31 14:00] VITALS: BP 145/66; PULSE 91; RESP 20; TEMP 37; O2SAT 96
[2022-03-31 20:10] LABS: Appearance Urine Clear (Clear); Bilirubin Urine 3+ (Negative); Color Urine Yellow (Yellow); Glucose Urine UA Negative (Negative); Ketones Urine 3+ mg/dL (Negative); Leukocyte Esterase Ur Negative LEU/UL (Negative); Nitrate Urine Negative (Negative); Protein Urine Negative (Negative)
[2022-03-31 20:17] LABS: Mucus Urine Rare /lpf; Squamous Epithelial Cell Urine Moderate /hpf (Few); WBC Urine 0-3 /hpf
[2022-03-31 20:18] LABS: Add Urine Microscopic? YES; Blood Urine Trace-Intact (Negative)
[2022-03-31 22:00] VITALS: BP 129/84; PULSE 81; RESP 16; TEMP 38.6; O2SAT 97
[2022-04-01] MEDS: HYDROmorphone HCL INJ (*CRX) 1 MG/ML SYR IV PUSH ×7 (01:05→22:44)
[2022-04-01] MEDS: SODIUM CHLORIDE 0.9% IV 1,000 ML 200 ML IV CONT ×4 (01:08→22:18)
[2022-04-01 05:16] VITALS: BP 135/75; PULSE 84; RESP 16; TEMP 37.8; O2SAT 96
[2022-04-01 06:50] LABS: Hemoglobin 12.1 g/dL (12.0-15.0); Mean Corpuscular HGB Conc 33.6 g/dl (32-36); Mean Corpuscular Hemoglobin 32.6 pg (26-34); Mean Platelet Volume 9.5 fl (7.4-10.4); Platelet Count Result 211 k/mm3 (150-375); Red Blood Count 3.71 M/mm3 (4.2-5.4); White Blood Count 14.7 K/mm3 (4.5-10.0)
[2022-04-01 07:02] LABS: Alanine Aminotransferase 315 U/L (6-35); Albumin Level 3.6 g/dL (3.5-5.1); Alkaline Phosphatase 272 U/L (38-126); Anion Gap 6 mmol/L (8-16); Aspartate Amino Transferase 112 U/L (14-36); Bilirubin,Total 6.9 mg/dL (0.2-1.3); Blood Urea Nitrogen 7 mg/dL (7-17); Calcium 7.9 mg/dL (8.4-10.2); Carbon Dioxide 25 mmol/L (22-30); Chloride 104 mmol/L (98-107); Estimated CRCL calculation 111 ml/min; Estimated Glomerular Filt Rate > 60; Glucose 96 mg/dL (65-110); Potassium 3.4 mmol/L (3.4-5.0); Sodium 135 mmol/L (137-145)
[2022-04-01 07:21] LABS: Lipase 2496 U/L (23-300)
[2022-04-01 08:00] VITALS: PULSE 84; RESP 16; O2SAT 96
[2022-04-01 08:06] VITALS: TEMP 36.2
--- NOTE | 2022-04-01 08:35 | WPDGIPROGNO ---
Progress Note: A&P Assessment and Plan (1) Acute pancreatitis after endoscopic retrograde cholangiopancreatography (ERCP): Code(s): K91.89 - Other postprocedural complications and disorders of digestive system; K85.90 - Acute pancreatitis without necrosis or infection, unspecified Status: Acute Assessment and Plan: Post ERCP pancreatitis, lipase is improving. I explained the patient that she will probably have pain for few days even after her lipase returns to normal as the pancreas continues to heal. A pancreatic duct stent was placed at the time of the ERCP. This may fall out spontaneously or would be removed in a couple of weeks endoscopically. (2) Leukocytosis: Code(s): D72.829 - Elevated white blood cell count, unspecified Status: Acute Assessment and Plan: White blood cell count significantly improved today, continue Zosyn, do not suspect underlying infection, will discontinue antibiotics and white count normalizes if patient continues to appear non infectious (3) Elevated LFTs: Code(s): R79.89 - Other specified abnormal findings of blood chemistry Status: Acute Assessment and Plan: Her common bile duct was clear, hence elevation of bilirubin and liver enzymes possibly secondary to pancreatitis. Will need to continue to monitor that. (4) Tobacco use: Code(s): Z72.0 - Tobacco use Status: Acute Assessment and Plan: Smoking cessation is encouraged. (5) Obstructive sleep apnea: Code(s): G47.33 - Obstructive sleep apnea (adult) (pediatric) Status: Acute Assessment and Plan: CPAP will be provided for the patient to use while hospitalized. Subjective Date/time seen: 04/01/22 08:35 she states that she did sleep somewhat at intervals. She sleeps until the pain medication wears off and she wakes up. She is still diffusely uncomfortable in her abdomen. Lipase is coming down. Review of Systems Review of Systems: All systems reviewed & are unremarkable except as noted in HPI and below Exam Const: General: alert and tired appearing Orientation/consciousness: patient oriented x3 HENMT: Mouth: Yes dry mucous membranes Resp: Auscultation: clear to auscultation bilaterally Cardio: Rhythm: regular rhythm GI: GI Palp: Yes Soft to palpation, Yes Tenderness to palpation present (GI) ( Diffusely tender) and Yes Guarding due to palpation present (GI) ( mild guarding) Auscultation: Hypoactive bowel sounds present Neuro: General: patient oriented x3 Objective Data Vital Signs Vital Signs: Vital Signs - 24 hr 03/31/22 09:20 03/31/22 14:00 03/31/22 22:00 Temperature 37.0 C 38.6 C H Pulse Rate 91 81 Respiratory Rate 20 16 Blood Pressure 145/66 H 129/84 Pulse Oximetry 94 96 97 Oxygen Delivery Room Air 04/01/22 05:16 04/01/22 08:06 Temperature 37.8 C H 36.2 C L Pulse Rate 84 Respiratory Rate 16 Blood Pressure 135/75 Pulse Oximetry 96 Oxygen Delivery Intake/Output Intake/Output: Intake & Output 03/29/22 03/30/22 03/31/22 04/01/22 23:59 23:59 23:59 23:59 Intake Total 3350 3250 1100 Output Total 300 1600 1450 Balance 3050 1650 -350 Meds/Results Medications: Active Medications Generic Name Dose Route Start Last Admin Trade Name Freq PRN Reason Stop Dose Admin Albuterol 1 puff 03/30/22 15:50 Albuterol Sulfate (*Sp) Aerosol 1 Puff INHALATION Q4H PRN Shortness Of Breath Hydromorphone HCl 1 mg 03/30/22 23:00 04/01/22 08:00 Hydromorphone Hcl Inj (*Crx) 1 Mg/Ml Syr IV PUSH 1 mg Q3H PRN Administration Pain Rated 7-10 Piperacillin/Tazobactam/Dextrose 3.375 gm in 50 mls @ 100 mls/hr 03/30/22 18:00 04/01/22 06:20 Zosyn 3.375 Gm/D5w 50ml Pm IVPB Infused Q6HR ZACH Infusion Sodium Chloride 1,000 mls @ 200 mls/hr 03/30/22 10:05 04/01/22 08:07 Normal Saline Iv IV CONT Not Given .Q5H ZACH Ondansetron HCl 4 mg 03/30/22 10:05 06
--- NOTE | 2022-04-01 12:44 | PM.IMPN ---
Progress Note: A&P Assessment and Plan (1) Acute pancreatitis after endoscopic retrograde cholangiopancreatography (ERCP): Code(s): K91.89 - Other postprocedural complications and disorders of digestive system; K85.90 - Acute pancreatitis without necrosis or infection, unspecified Status: Acute Assessment and Plan: Post ERCP pancreatitis, improving, appreciate GI consultation, continue ice chips, advance diet as tolerated per GI recommendations, IV fluids (2) Leukocytosis: Code(s): D72.829 - Elevated white blood cell count, unspecified Status: Acute Assessment and Plan: White count somewhat unchanged today, bilirubin is a little higher today, AST and ALT are both improved, alk-phos minimally bumped, lipase continues to improve, will continue Zosyn for now (3) Elevated LFTs: Code(s): R79.89 - Other specified abnormal findings of blood chemistry Status: Acute Assessment and Plan: Elevated LFTs likely secondary to pancreatitis, monitor (4) Tobacco use: Code(s): Z72.0 - Tobacco use Status: Acute Assessment and Plan: Smoking cessation is encouraged. (5) Obstructive sleep apnea: Code(s): G47.33 - Obstructive sleep apnea (adult) (pediatric) Status: Acute Assessment and Plan: CPAP will be provided for the patient to use while hospitalized. (6) Asthma: Code(s): J45.909 - Unspecified asthma, uncomplicated Status: Acute Assessment and Plan: No acute issues. Albuterol inhaler available as needed. Subjective Date/time seen: 04/01/22 12:44 Interval history: Patient states she feels about the same as yesterday be slightly better. Still continued abdominal pain, she is very thirsty and hungry. Denies fevers or chills. No overnight events. No nausea or vomiting. She does have some occasional loose stool, but very small volume of stool at this time. No dysuria. Review of Systems Review of Systems: Twelve point review of systems was reviewed and is negative except as noted in the HPI Exam Narrative: General: Patient resting comfortably in bed, no acute distress HEENT: Atraumatic, normocephalic, mucous membranes moist CV: Regular rate and rhythm, S1, S2, no murmurs rubs or gallops noted Lungs: Clear to auscultation bilaterally, no rales or crackles noted, no wheezes, good air entry Abdomen: Diffusely tender without peritoneal signs Extremities: Normal to inspection, no edema noted Skin: No rashes noted, no lesions or wounds seen Psych: Euthymic, normal affect Neuro: Cranial nerves 2-12 grossly intact, strength 5/5 upper and lower extremities noted Objective Data Vital Signs Vital Signs: Vital Signs - 24 hr 03/31/22 14:00 03/31/22 22:00 04/01/22 05:16 Temperature 98.6 F 101.5 F H 100.0 F H Pulse Rate 91 81 84 Respiratory Rate 20 16 16 Blood Pressure 145/66 H 129/84 135/75 Pulse Oximetry 96 97 96 Oxygen Delivery 04/01/22 08:06 04/01/22 08:00 Temperature 97.1 F L Pulse Rate 84 Respiratory Rate 16 Blood Pressure Pulse Oximetry 96 Oxygen Delivery Room Air Intake/Output Intake/Output: Intake & Output 03/29/22 03/30/22 03/31/22 04/01/22 23:59 23:59 23:59 23:59 Intake Total 3350 3250 2100 Output Total 300 1600 1750 Balance 3050 1650 350 Meds/Results Medications: Active Medications Generic Name Dose Route Start Last Admin Trade Name Freq PRN Reason Stop Dose Admin Albuterol 1 puff 03/30/22 15:50 Albuterol Sulfate (*Sp) Aerosol 1 Puff INHALATION Q4H PRN Shortness Of Breath Hydromorphone HCl 1 mg 03/30/22 23:00 04/01/22 11:18 Hydromorphone Hcl Inj (*Crx) 1 Mg/Ml Syr IV PUSH 1 mg Q3H PRN Administration Pain Rated 7-10 Piperacillin/Tazobactam/Dextrose 3.375 gm in 50 mls @ 100 mls/hr 03/30/22 18:00 04/01/22 06:20 Zosyn 3.375 Gm/D5w 50ml Pm IVPB Infused Q6HR ZACH Infusion Sodium Chloride 1,000 mls @ 200 m
[2022-04-01 13:56] VITALS: BP 128/77; PULSE 93; RESP 20; TEMP 37.6; O2SAT 95
[2022-04-01] MEDS: ONDANSETRON INJ 4 MG/2 ML VIAL IV PUSH (18:28)
[2022-04-01 20:23] VITALS: BP 130/62; PULSE 96; RESP 18; TEMP 36.6; O2SAT 95
[2022-04-02] MEDS: SODIUM CHLORIDE 0.9% IV 1,000 ML 200 ML IV CONT ×4 (02:31→21:20)
[2022-04-02] MEDS: HYDROmorphone HCL INJ (*CRX) 1 MG/ML SYR IV PUSH ×4 (03:04→15:17)
[2022-04-02 05:19] VITALS: BP 120/76; PULSE 88; RESP 18; TEMP 37.3; O2SAT 99
[2022-04-02 08:00] VITALS: PULSE 88; RESP 18; O2SAT 99
[2022-04-02 09:12] LABS: Basophils Absolute Auto 0.1 K/mm3 (0.0-0.1); Basophils Percent Auto 0.5 % (0.2-1.2); Eosinophils Absolute Auto 0.2 K/mm3 (0-0.3); Eosinophils Percent Auto 1.2 % (0-4.4); Hematocrit 32.9 % (37.0-47.0); Hemoglobin 11.5 g/dL (12.0-15.0); Immature Granulocyte Absolute 0.16 K/mm3 (0.00-0.031); Immature Granulocyte Percent A 1.2 % (0-0.5); Lymphocytes Absolute Auto 1.52 K/mm3 (0.9-3.2); Lymphocytes Percent Auto 11.4 % (18.3-44.2); Mean Corpuscular Hemoglobin 33.4 pg (26-34); Mean Corpuscular Volume 95.6 fl (80-100); Mean Platelet Volume 9.6 fl (7.4-10.4); Monocytes Absolute Auto 1.3 K/mm3 (0.1-0.6); Monocytes Percent Auto 10.1 % (2.6-8.5); Neutrophils Absolute Auto 10.1 K/mm3 (1.3-6.7); Neutrophils Percent Auto 75.6 % (45.5-73.1); Platelet Count Result 210 k/mm3 (150-375); Red Blood Count 3.44 M/mm3 (4.2-5.4); Red Cell Distribution Width 13.2 % (11.5-14.5); White Blood Count 13.3 K/mm3 (4.5-10.0)
[2022-04-02 09:33] LABS: Alanine Aminotransferase 187 U/L (6-35); Alkaline Phosphatase 229 U/L (38-126); Anion Gap 1 mmol/L (8-16); Aspartate Amino Transferase 39 U/L (14-36); Bilirubin,Total 2.9 mg/dL (0.2-1.3); Blood Urea Nitrogen 3 mg/dL (7-17); Carbon Dioxide 30 mmol/L (22-30); Chloride 103 mmol/L (98-107); Estimated CRCL calculation 121 ml/min; Estimated Glomerular Filt Rate > 60; Glucose 136 mg/dL (65-110); Potassium 3.1 mmol/L (3.4-5.0); Sodium 134 mmol/L (137-145)
[2022-04-02 11:41] LABS: Lipase 161 U/L (23-300)
--- NOTE | 2022-04-02 12:26 | WPDGIPROGNO ---
Progress Note: A&P Assessment and Plan (1) Acute pancreatitis after endoscopic retrograde cholangiopancreatography (ERCP): Code(s): K91.89 - Other postprocedural complications and disorders of digestive system; K85.90 - Acute pancreatitis without necrosis or infection, unspecified Status: Acute Assessment and Plan: Post ERCP pancreatitis, lipase is improving. I explained the patient that she will probably have pain for few days even after her lipase returns to normal as the pancreas continues to heal. A pancreatic duct stent was placed at the time of the ERCP. This may fall out spontaneously or would be removed in a couple of weeks endoscopically. (2) Leukocytosis: Code(s): D72.829 - Elevated white blood cell count, unspecified Status: Acute Assessment and Plan: White blood cell count significantly improved today, continue Zosyn, do not suspect underlying infection, will discontinue antibiotics whenwhite count normalizes if patient continues to appear non infectious (3) Elevated LFTs: Code(s): R79.89 - Other specified abnormal findings of blood chemistry Status: Acute Assessment and Plan: Her common bile duct was clear, hence elevation of bilirubin and liver enzymes possibly secondary to pancreatitis. Will need to continue to monitor that. (4) Tobacco use: Code(s): Z72.0 - Tobacco use Status: Acute Assessment and Plan: Smoking cessation is encouraged. (5) Obstructive sleep apnea: Code(s): G47.33 - Obstructive sleep apnea (adult) (pediatric) Status: Acute Assessment and Plan: CPAP will be provided for the patient to use while hospitalized. (6) Bilateral serous otitis media: Code(s): H65.93 - Unspecified nonsuppurative otitis media, bilateral Status: Acute Assessment and Plan: she is due to have tubes placed in her ears on Sunday and she does not want her hospitalization to interfere with that because she is becoming increasingly uncomfortable Subjective Date/time seen: 04/02/22 12:26 she is feeling a bit better. The pain has decreased to the point that she is trying to go 4 hours in between pain medications. She did tolerate some liquids. I Explained to her how we cannot advance her diet until she is free of pain Review of Systems Review of Systems: All systems reviewed & are unremarkable except as noted in HPI and below Exam Narrative: uncomfortable because of pain Const: General: alert and tired appearing Orientation/consciousness: patient oriented x3 HENMT: General nose exam: Normal nares present Mouth: Yes dry mucous membranes Eyes: General: appearance normal, both eyes and all related structures Neck: Neck: supple Resp: Effort & Inspection: normal respiratory effort Auscultation: clear to auscultation bilaterally Cardio: Rate: regular rate Rhythm: regular rhythm GI: Inspection: distended GI Palp: Yes abdominal tenderness ( diffuse, but worse in the upper abd) Percussion: Yes normal to percussion Auscultation: Hypoactive bowel sounds present Skin: General skin exam: normal color Neuro: General: patient oriented x3 Cranial nerves: Yes Normal hearing present Speech: normal speech Extrem: General: normal to inspection Psych: Mental Status: mental status grossly normal Objective Data Vital Signs Vital Signs: Vital Signs - 24 hr 04/01/22 13:56 04/01/22 20:23 04/02/22 05:19 Temperature 37.6 C 36.6 C 37.3 C Pulse Rate 93 96 88 Respiratory Rate 20 18 18 Blood Pressure 128/77 130/62 120/76 Pulse Oximetry 95 95 99 Oxygen Delivery 04/02/22 08:00 Temperature Pulse Rate 88 Respiratory Rate 18 Blood Pressure Pulse Oximetry 99 Oxygen Delivery Room Air Intake/Output Intake/Output: Intake & Output 03/30/22 03/31/22 04/01/22 04/02/22 23:59 23:59 23:59 23:59 Intake Total 3350 3250 4690 2780 Output Total 300 1600 1750 1900 Balance 3050 1650 2
[2022-04-02 14:00] VITALS: BP 111/72; PULSE 91; RESP 18; TEMP 37.4; O2SAT 97
[2022-04-02] MEDS: oxyCODONE HCL (*CRX) 5 MG TAB IR PO ×2 (18:30→21:18)
[2022-04-02 19:25] VITALS: BP 135/75; PULSE 95; RESP 18; TEMP 36.7; O2SAT 96
[2022-04-02 20:30] VITALS: PULSE 90; RESP 18; O2SAT 94
[2022-04-02 22:00] VITALS: BP 135/70; PULSE 90; RESP 18; TEMP 36.9; O2SAT 94
[2022-04-03] VITALS (7 sets, daily range): BP systolic 118–138; BP diastolic 62–80; PULSE 79–110; RESP 14–22; TEMP 36.3–37.2; O2SAT 95–99
--- NOTE | 2022-04-03 07:31 | WPDGIPROGNO ---
Progress Note: A&P Assessment and Plan (1) Acute pancreatitis after endoscopic retrograde cholangiopancreatography (ERCP): Code(s): K91.89 - Other postprocedural complications and disorders of digestive system; K85.90 - Acute pancreatitis without necrosis or infection, unspecified Status: Acute Assessment and Plan: Post ERCP pancreatitis, lipase is improving. I explained the patient that she will probably have pain for few days even after her lipase returns to normal as the pancreas continues to heal. A pancreatic duct stent was placed at the time of the ERCP. This may fall out spontaneously or would be removed in a couple of weeks endoscopically. 04/03 although her lipase normal, clinically she has not approved. CT scan will be repeated today. CT scan does show interstitial pancreatitis. There is only a scant amount of ascites. There is not a significant amount of bowel distension. if unable to take nutrition orally soon, will consider TPN, PPN. (2) Leukocytosis: Code(s): D72.829 - Elevated white blood cell count, unspecified Status: Acute Assessment and Plan: White blood cell count significantly improved today, continue Zosyn, do not suspect underlying infection, will discontinue antibiotics whenwhite count normalizes if patient continues to appear non infectious (3) Elevated LFTs: Code(s): R79.89 - Other specified abnormal findings of blood chemistry Status: Acute Assessment and Plan: Her common bile duct was clear, hence elevation of bilirubin and liver enzymes possibly secondary to pancreatitis. Will need to continue to monitor that. 04/03 slowly improving, bilirubin down to 2.9 (4) Tobacco use: Code(s): Z72.0 - Tobacco use Status: Acute Assessment and Plan: Smoking cessation is encouraged. (5) Obstructive sleep apnea: Code(s): G47.33 - Obstructive sleep apnea (adult) (pediatric) Status: Acute Assessment and Plan: CPAP will be provided for the patient to use while hospitalized. (6) Bilateral serous otitis media: Code(s): H65.93 - Unspecified nonsuppurative otitis media, bilateral Status: Acute Assessment and Plan: she is due to have tubes placed in her ears on Sunday and she does not want her hospitalization to interfere with that because she is becoming increasingly uncomfortable 04/03 nursing tells me that in her ENT physician will not do her myringotomy while she is hospitalized Subjective Date/time seen: 04/03/22 07:31 she states that she did not have a good night. She slept poorly. She began to notice abdominal distention in the evening and was having more discomfort in the pelvis. She had notified the staff asking that IV or another physician be called but she states that the answer she was given was something to the point that she was requesting intravenous medications which patient states was not the fact. At any rate she is what this consult this morning and of course in a great deal of pain because she states she was afraid to ask for any pain medicine during the night, for fear that she would be considered that abuser. I spoke to Guy Gautam regarding her concerns; he states that he or a patient advocate will talk to the patient regarding her concerns. Although her lipase is normal, I am afraid that her pancreatitis may be worse and could be evolving into pancreatic ascites given her distention. Hopefully it is only an ileus. Exam GI: Inspection: other ( convex) GI Palp: Yes abdominal tenderness ( diffuse) and Yes Guarding due to palpation present (GI) Extrem: General: normal to inspection Psych: Mental Status: mental status grossly normal Objective Data Vital Signs Vital Signs: Vital Signs - 24 hr 04/02/22 08:00 04/02/22 14:00 04/02/22 19:25 Temperature 37.4 C 36.7 C Pulse Rate 88 91 95 Respiratory Rate 18 18 18 Blood Pressure 111/72 135/75 Pulse Oximet
[2022-04-03] MEDS: oxyCODONE HCL (*CRX) 5 MG TAB IR PO ×2 (08:16→18:31)
[2022-04-03] MEDS: SODIUM CHLORIDE 0.9% IV 1,000 ML 200 ML IV CONT ×3 (08:23→20:02)
--- NOTE | 2022-04-03 11:16 | PC.NURSE ---
Dr. Perez placed on consult per patient request. Patient's ENT surgery was cancelled 04/[address] Perez due to current condition.
[2022-04-03 11:43] LABS: Lipase 94 U/L (23-300)
[2022-04-03] MEDS: MORPHINE SULFATE (*CRX) 4 MG/ML INJ IV PUSH (12:24)
--- NOTE | 2022-04-03 13:19 | PM.IMPN ---
Progress Note: A&P Assessment and Plan (1) Acute pancreatitis after endoscopic retrograde cholangiopancreatography (ERCP): Code(s): K91.89 - Other postprocedural complications and disorders of digestive system; K85.90 - Acute pancreatitis without necrosis or infection, unspecified Status: Acute Assessment and Plan: Post ERCP pancreatitis, improving, appreciate GI consultation, continue ice chips, advance diet as tolerated per GI recommendations, IV fluids Zosyn, antibiotic day 5, started March 30 (2) Leukocytosis: Code(s): D72.829 - Elevated white blood cell count, unspecified Status: Acute Assessment and Plan: All labs improved, symptoms a little worse, repeat CT done by GI today, showed continued interstitial pancreatitis (3) Elevated LFTs: Code(s): R79.89 - Other specified abnormal findings of blood chemistry Status: Acute Assessment and Plan: Resolving (4) Tobacco use: Code(s): Z72.0 - Tobacco use Status: Acute Assessment and Plan: Smoking cessation is encouraged. (5) Obstructive sleep apnea: Code(s): G47.33 - Obstructive sleep apnea (adult) (pediatric) Status: Acute Assessment and Plan: CPAP will be provided for the patient to use while hospitalized. (6) Asthma: Code(s): J45.909 - Unspecified asthma, uncomplicated Status: Acute Assessment and Plan: No acute issues. Albuterol inhaler available as needed. Subjective Date/time seen: 04/03/22 13:19 Interval history: Patient extremely tearful today. She was supposed to have tubes in her ears tomorrow the procedure has been canceled since she is here with pancreatitis. 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 She denies any associated nausea or vomiting. No chest pain or shortness of breath. Review of Systems Review of Systems: Twelve point review of systems was reviewed and is negative except as noted in the HPI Exam Narrative: General: Patient resting comfortably in bed, no acute distress HEENT: Atraumatic, normocephalic, mucous membranes moist CV: Regular rate and rhythm, S1, S2, no murmurs rubs or gallops noted Lungs: Clear to auscultation bilaterally, no rales or crackles noted, no wheezes, good air entry Abdomen: Diffusely tender without peritoneal signs. moderate distention Extremities: Normal to inspection, no edema noted Skin: No rashes noted, no lesions or wounds seen Psych: Euthymic, normal affect Neuro: Cranial nerves 2-12 grossly intact, strength 5/5 upper and lower extremities noted Objective Data Vital Signs Vital Signs: Vital Signs - 24 hr 04/02/22 14:00 04/02/22 19:25 04/02/22 22:00 Temperature 99.3 F 98.1 F 98.4 F Pulse Rate 91 95 90 Respiratory Rate 18 18 18 Blood Pressure 111/72 135/75 135/70 Pulse Oximetry 97 96 94 Oxygen Delivery 04/02/22 20:30 04/03/22 06:00 04/03/22 08:00 Temperature 98.1 F Pulse Rate 90 80 Respiratory Rate 18 14 Blood Pressure 118/62 Pulse Oximetry 94 96 96 Oxygen Delivery Room Air Room Air 04/03/22 13:14 Temperature Pulse Rate Respiratory Rate Blood Pressure Pulse Oximetry 95 Oxygen Delivery Room Air Intake/Output Intake/Output: Intake & Output 03/31/22 04/01/22 04/02/22 04/03/22 23:59 23:59 23:59 23:59 Intake Total 3250 4690 5416 1540 Output Total 1600 1750 2700 2 Balance 1650 2940 2716 1538 Meds/Results Medications: Active Medications Generic Name Dose Route Start Last Admin Trade Name Freq PRN Reason Stop Dose Admin Albuterol 1 puff 03/30/22 15:50 Albuterol Sulfate (*Sp) Aerosol 1 Puff INHALATION Q4H PRN Shortness Of Breath Piperacillin/Tazobactam/Dextrose 3.375 gm in 50 mls @ 100 mls/hr 03/30/22 18:00 04/03/22 05:59 Zosyn 3.375 Gm/D5w 50ml Pm IVPB 100 mls/hr Q6HR ZACH
[2022-04-03] MEDS: LORazepam INJ (*CRX) 2 MG/ML VIAL 1 MG IV PUSH (13:20)
[2022-04-04] MEDS: SODIUM CHLORIDE 0.9% IV 1,000 ML 200 ML IV CONT ×2 (01:31→07:44)
[2022-04-04 04:54] VITALS: BP 133/75; PULSE 77; RESP 18; TEMP 36.7; O2SAT 97
--- NOTE | 2022-04-04 07:16 | WPDGIPROGNO ---
Progress Note: A&P Assessment and Plan (1) Acute pancreatitis after endoscopic retrograde cholangiopancreatography (ERCP): Code(s): K91.89 - Other postprocedural complications and disorders of digestive system; K85.90 - Acute pancreatitis without necrosis or infection, unspecified Status: Acute Assessment and Plan: Post ERCP pancreatitis, lipase is improving. I explained the patient that she will probably have pain for few days even after her lipase returns to normal as the pancreas continues to heal. A pancreatic duct stent was placed at the time of the ERCP. This may fall out spontaneously or would be removed in a couple of weeks endoscopically. 04/03 although her lipase normal, clinically she has not approved. CT scan will be repeated today. CT scan does show interstitial pancreatitis. There is only a scant amount of ascites. There is not a significant amount of bowel distension. if unable to take nutrition orally soon, will consider TPN, PPN. 04/04. CT looked better than I expected. There was only a trace bit of ascites. I will start her on a full liquid diet. I explained that the pain will last for several more days. That does not necessarily mean that she needs to stay in the hospital. We simply need to ensure that she is getting adequate hydration and nutrition before she is discharged. (2) Leukocytosis: Code(s): D72.829 - Elevated white blood cell count, unspecified Status: Acute Assessment and Plan: White blood cell count significantly improved today, continue Zosyn, do not suspect underlying infection, will discontinue antibiotics whenwhite count normalizes if patient continues to appear non infectious white blood count has been coming down. I Will recheck in the morning with differential. (3) Elevated LFTs: Code(s): R79.89 - Other specified abnormal findings of blood chemistry Status: Acute Assessment and Plan: Her common bile duct was clear, hence elevation of bilirubin and liver enzymes possibly secondary to pancreatitis. Will need to continue to monitor that. 04/03 slowly improving, bilirubin down to 2.9 (4) Tobacco use: Code(s): Z72.0 - Tobacco use Status: Acute Assessment and Plan: Smoking cessation is encouraged. (5) Obstructive sleep apnea: Code(s): G47.33 - Obstructive sleep apnea (adult) (pediatric) Status: Acute Assessment and Plan: CPAP will be provided for the patient to use while hospitalized. (6) Bilateral serous otitis media: Code(s): H65.93 - Unspecified nonsuppurative otitis media, bilateral Status: Acute Assessment and Plan: she is due to have tubes placed in her ears on Sunday and she does not want her hospitalization to interfere with that because she is becoming increasingly uncomfortable 04/03 nursing tells me that in her ENT physician will not do her myringotomy while she is hospitalized Time Spent With Patient Time: 33 minutes Subjective Date/time seen: 04/04/22 07:16 She actually slept all night. Staff indicates that she has not requested pain medicine so far since midnight. I choose not to wake her up but returned about 1 hour later. She is somewhat upset now. This time it is because she was supposed to have outpatient ear surgery today, and the physician told her that he was not comfortable doing it while she was an inpatient. Also, she states her mother flu 1500 miles to be with her but is not allowed to see her because visiting hours have not yet started. She states that her mother instead went to visit her son. A found her fold on the floor. She states that she threw it because she was upset. She added that she needed Ativan yesterday morning after talking to the ENT physician.. I discussed with her the results of the CT scan. I explained that there was not a significant amount of ascites or intestinal air to explain her feeling of bein
[2022-04-04 08:00] VITALS: O2SAT 99
[2022-04-04 08:28] LABS: Basophils Absolute Auto 0.1 K/mm3 (0.0-0.1); Basophils Percent Auto 0.6 % (0.2-1.2); Eosinophils Absolute Auto 0.3 K/mm3 (0-0.3); Eosinophils Percent Auto 3.4 % (0-4.4); Hematocrit 30.2 % (37.0-47.0); Hemoglobin 10.3 g/dL (12.0-15.0); Immature Granulocyte Absolute 0.13 K/mm3 (0.00-0.031); Immature Granulocyte Percent A 1.6 % (0-0.5); Lymphocytes Absolute Auto 1.82 K/mm3 (0.9-3.2); Lymphocytes Percent Auto 22.3 % (18.3-44.2); Mean Corpuscular HGB Conc 34.1 g/dl (32-36); Mean Corpuscular Hemoglobin 32.7 pg (26-34); Mean Corpuscular Volume 95.9 fl (80-100); Mean Platelet Volume 9.5 fl (7.4-10.4); Monocytes Absolute Auto 0.8 K/mm3 (0.1-0.6); Monocytes Percent Auto 10.2 % (2.6-8.5); Neutrophils Percent Auto 61.9 % (45.5-73.1); Platelet Count Result 248 k/mm3 (150-375); Red Blood Count 3.15 M/mm3 (4.2-5.4); Red Cell Distribution Width 13.5 % (11.5-14.5); White Blood Count 8.2 K/mm3 (4.5-10.0)
[2022-04-04] MEDS: oxyCODONE HCL (*CRX) 5 MG TAB IR PO (08:30)
[2022-04-04 08:40] LABS: Alanine Aminotransferase 91 U/L (6-35); Albumin Level 3.1 g/dL (3.5-5.1); Alkaline Phosphatase 256 U/L (38-126); Anion Gap 2 mmol/L (8-16); Aspartate Amino Transferase 20 U/L (14-36); Bilirubin,Total 1.6 mg/dL (0.2-1.3); Blood Urea Nitrogen 4 mg/dL (7-17); Calcium 8.1 mg/dL (8.4-10.2); Carbon Dioxide 30 mmol/L (22-30); Chloride 106 mmol/L (98-107); Estimated CRCL calculation 121 ml/min; Estimated Glomerular Filt Rate > 60; Glucose 102 mg/dL (65-110); Lipase 87 U/L (23-300); Potassium 3.3 mmol/L (3.4-5.0); Sodium 138 mmol/L (137-145)
[2022-04-04 11:50] LABS: Lipase 101 U/L (23-300)
[2022-04-04] MEDS: LIPASE/AMYLASE/PROTEASE 12,000 UNITS CAP 2 CAP PO ×2 (12:29→18:01)
--- NOTE | 2022-04-04 14:06 | PM.DS ---
DS: Admitting Diagnosis Discharge Date April 04, 2022 Admitting Diagnosis ERCP induced pancreatitis DS: Discharge Diagnosis Discharge Diagnosis (1) Acute pancreatitis after endoscopic retrograde cholangiopancreatography (ERCP): Code(s): K91.89 - Other postprocedural complications and disorders of digestive system; K85.90 - Acute pancreatitis without necrosis or infection, unspecified Status: Acute Assessment and Plan: Post ERCP pancreatitis, improving, appreciate GI consultation, continue ice chips, advance diet as tolerated per GI recommendations, IV fluids Zosyn, antibiotic day 5, started March 30 (2) Leukocytosis: Code(s): D72.829 - Elevated white blood cell count, unspecified Status: Acute Assessment and Plan: All labs improved, symptoms a little worse, repeat CT done by GI today, showed continued interstitial pancreatitis (3) Elevated LFTs: Code(s): R79.89 - Other specified abnormal findings of blood chemistry Status: Acute Assessment and Plan: Resolving (4) Tobacco use: Code(s): Z72.0 - Tobacco use Status: Acute Assessment and Plan: Smoking cessation is encouraged. (5) Obstructive sleep apnea: Code(s): G47.33 - Obstructive sleep apnea (adult) (pediatric) Status: Acute Assessment and Plan: CPAP will be provided for the patient to use while hospitalized. (6) Asthma: Code(s): J45.909 - Unspecified asthma, uncomplicated Status: Acute Assessment and Plan: No acute issues. Albuterol inhaler available as needed. DS: Summary Hospital Course Reason for hospitalization: ERCP induced pancreatitis Hospital Course: 41-year-old female with past medical history of asthma and obstructive sleep apnea presented to the ER with significant abdominal and chest pain. She had an ERCP done yesterday with sphincterotomy and deployment of a pancreatic stent to prevent pancreatitis and facilitate bile duct cannulation. Later that day, she had a bloating gaslike discomfort in her chest and upper abdomen the radiated around her right upper quadrant and into her back. She states the pain has been constant and getting progressively worse. Nothing seems to make it better. In the ER, she was found to have a lipase greater than 40,000 with elevated LFTs and bilirubin. CT was essentially unremarkable. She was admitted with IV fluids, kept NPO, GI was consulted and her pain was controlled. She was also started on Zosyn for prophylaxis. Over the course of her stay, she did not seem to recover as quickly as GI had hoped. A repeat CT scan was done that showed continued pancreatitis. Lipase trended down but very slowly. Finally, she was able to tolerate a regular diet and was off IV fluids. She was discharged in good condition with close outpatient management by GI. While she was here, she completed a 6 day course of Zosyn. Time Spent with Patient Time attestation: Total time spent providing and/or coordinating discharge services: Exam Narrative: General: Patient resting comfortably in bed, no acute distress HEENT: Atraumatic, normocephalic, mucous membranes moist CV: Regular rate and rhythm, S1, S2, no murmurs rubs or gallops noted Lungs: Clear to auscultation bilaterally, no rales or crackles noted, no wheezes, good air entry Abdomen: Diffusely tender without peritoneal signs. moderate distention Extremities: Normal to inspection, no edema noted Skin: No rashes noted, no lesions or wounds seen Psych: Euthymic, normal affect Neuro: Cranial nerves 2-12 grossly intact, strength 5/5 upper and lower extremities noted DS: Data Data Completed and Pending Labs on day of discharge: Labs from last 24 hours 04/04/22 04/04/22 04/04/22 11:25 08:10 08:10 WBC 8.2 RBC 3.15 L Hgb 10.3 L Hct 30.2 L MCV 95.9 MCH 32.7 MCHC 34.1 RDW 13.5 Plt Count 248 MPV 9.5 Immature Gran % (Auto)
[2022-04-04 15:00] VITALS: BP 139/82; PULSE 80; RESP 18; TEMP 37.4; O2SAT 100
== END 2022-04-04 18:05 | disposition home or self-care (01) | DRG 252 ==
LOC: ANHED 08:17 → ANH3MEDSUR 18:26
PROVIDERS: Internal Medicine Gastroenterology; Physician Assistant; Admitting Provider Family Medicine; Emergency Provider Emergency Medicine; PCP Family Medicine; Visit Provider Student in an Organized Health Care Education/Training Program
DX: K91.89 Other postprocedural complications and disorders of digestive system (principal); K85.80 Other acute pancreatitis without necrosis or infection; D72.829 Elevated white blood cell count, unspecified; H65.93 Unspecified nonsuppurative otitis media, bilateral; G47.33 Obstructive sleep apnea (adult) (pediatric); J45.909 Unspecified asthma, uncomplicated; F41.8 Other specified anxiety disorders; Z86.16 Personal history of COVID-19; Z90.49 Acquired absence of other specified parts of digestive tract; Z87.891 Personal history of nicotine dependence
CPT/HCPCS: 36415; 71046; 74176; 80053; 81001; 83605; 83690; 83735; 84484; 85025; 85027; 86140; 87040; 93005; 96361; 96365; 96375; 99285; A9270; J0131; J1170; J1885; J2060; J2270; J2405; J2543; J7030

== ENCOUNTER 2022-04-12 10:16 | Outpatient (CLI) | payer OTHER, SELFPAY ==
[2022-04-12 10:36] LABS: Hemoglobin 14.5 g/dL (12.0-15.0); Mean Corpuscular HGB Conc 33.7 g/dl (32-36); Mean Corpuscular Hemoglobin 32.1 pg (26-34); Mean Corpuscular Volume 95.1 fl (80-100); Mean Platelet Volume 8.9 fl (7.4-10.4); Platelet Count Result 492 k/mm3 (150-375); Red Blood Count 4.52 M/mm3 (4.2-5.4); Red Cell Distribution Width 12.7 % (11.5-14.5)
[2022-04-12 11:03] LABS: Alanine Aminotransferase 39 U/L (6-35); Albumin Level 4.5 g/dL (3.5-5.1); Alkaline Phosphatase 135 U/L (38-126); Anion Gap 8 mmol/L (8-16); Aspartate Amino Transferase 28 U/L (14-36); Bilirubin,Total 0.6 mg/dL (0.2-1.3); Blood Urea Nitrogen 18 mg/dL (7-17); Calcium 10.1 mg/dL (8.4-10.2); Carbon Dioxide 29 mmol/L (22-30); Chloride 101 mmol/L (98-107); Estimated Glomerular Filt Rate > 60; Glucose 112 mg/dL (65-110); Potassium 4.5 mmol/L (3.4-5.0); Sodium 138 mmol/L (137-145)
[2022-04-12 11:35] LABS: Lipase 4715 U/L (23-300)
== END 2022-04-12 10:17 | disposition home or self-care (01) ==
PROVIDERS: PCP Family Medicine; Visit Provider Internal Medicine Gastroenterology
DX: R93.2 Abnormal findings on diagnostic imaging of liver and biliary tract (principal); R10.11 Right upper quadrant pain
CPT/HCPCS: 36415; 80053; 83690; 85027

== ENCOUNTER 2022-04-18 01:27 | Day surgery (SDC) | payer OTHER, SELFPAY ==
[2022-03-28 14:58] VITALS: BMI 27.8
--- NOTE | 2022-03-28 15:17 | PC.NURSE ---
Report to the Outpatient Waiting Room, entrance under the green pavilion located off [facility], at 0645 on 04-04-22. OR Time: 0845. - You and your visitor will be asked a series of questions to screen for COVID 19 for your protection. - Only one visitor is allowed at this time. - The patient visitor is requested to leave or wait in car when not with patient. - A mask is required within the hospital. Patients may have clear liquids (water, carbonated beverages, clear teas, apple juice) until 3 hours prior to surgery with a maximum of 20 ounces. 0545 - No food from midnight until time of surgery - Infants may have breast milk until 4 hours before surgery, infant formula 6 hours prior to surgery. - Children will be allowed to drink immediately following surgery. If applicable, please bring a bottle or sippy cup to assist with drinking. Juice, water, soda, and popsicles are readily available. For infants on formula, please bring formula the day of surgery. Pacifiers are allowed. Take the following medications with a SIP of water the morning of surgery: None Bring inhaler Medications to discontinue per physician: Phentermine Date to take last dose: Already stopped for surgery tomorrow so RN told her to continue to hold until after this procedure Please no make-up, nail latvian, hairspray, perfume, deodorant, or body powder the day of surgery. No jewelry (including any body piercings) or valuables the day of surgery, leave them at home. Please take a shower or bath the night before, or the morning of, surgery with an antibacterial soap. Wear comfortable, loose fitting clothing. Children are encouraged to wear pajamas. - Jewelry must be removed prior to entering the operating room. Rings and piercings that are not removed may be cut off. - The hospital will not accept responsibility for valuables. - Please leave all valuables, including medications, at home the day of surgery. If you are going home after surgery, a licensed front end driver must drive you home. - NO public transportation without another adult. - We recommend that an adult stay with you for 24 hours following discharge. - We also recommend that you do not drive, make important decision, drink alcoholic beverages, or take any drugs that were not prescribed by your health care provider for at least 24 hours after your discharge time. For Pediatric surgeries, we recommend two adults accompany the child home (only one inside the building at this time). Follow any additional instructions given to you from your surgeon. If you or anyone in your household have experienced Covid symptoms in the past week, please notify your surgeon or the nurse liaison at the phone number below for possible testing. Telephone instructions given to Swathi Simpson and asked if any additional questions and then verbalized understanding. Patient advised to call surgeon office or pre surgery nurse liaison [phone] if any additional questions.
--- NOTE | 2022-04-03 06:39 | P.HP_ITS ---
History of Present Illness History of Present Illness Consent: Risks, benefits, and alternatives have been discussed and questions answered. Patient agrees to proceed with procedure. Chief complaint: bilat chronic otitis media Narrative: Swathi Simpson is a 41 year old female has a history of tube in the left ear and no tube in the other ear has trouble hearing Review of Systems Review of Systems: All systems reviewed & are unremarkable except as noted in HPI and below Constitutional: Constitutional: Reports as per HPI and Reports no additional constitutional complaints [facility] Past Medical History Medical History Asthma COVID-19 (02/2022) Depression with anxiety Obstructive sleep apnea Tobacco use Surgical History Surgical History History of arthroscopy of right knee History of bladder surgery History of cholecystectomy History of hysterectomy History of tubal ligation History of tympanostomy tube placement History of umbilical hernia repair Family History Family History Mother Hypertension Thyroid disorder Sibling Asthma Grandparent Lymphoma Cerebrovascular accident Depression Grandparent Alcoholism Lung cancer Social History Social History Social History: Surrogate decision maker: Dario Simpson, spouse. Code status: Full code. Smoking packs per day: 1.25 Smoking cigarettes per day: 25.0 Years smoked: 20 Smoking pack-years: 25.00 Smoking status: Former smoker Tobacco type: cigarettes Second hand tobacco smoke exposure: No Alcohol intake: current Drinks per week: 2 Alcohol use details: socially Substance use: current Substance use type: marijuana Other substance usage details: 4-5 times weekly Additional living arrangements comments: Lives in [place] with spouse and children. Spiritual care concerns: No Comments social family medical surgical history all reviewed within normal limits Meds Home Medications and Allergies Home Medications Medication Instructions Recorded Confirmed Type albuterol sulfate 90 mcg/actuation 1 puff inhalation Q4H PRN 07/13/21 03/30/22 History aerosol inhaler Shortness Of Breath phentermine 37.5 mg tablet 37.5 mg PO DAILY 02/23/22 03/30/22 History Allergies Allergy/AdvReac Type Severity Reaction Status Date / Time No Known Allergies Allergy Verified 03/29/22 09:35 Exam HENMT: Head: normal to inspection Ears: TM abnormal ( has a tube in the r ight ear and retracted fluid-filled left ear) Assessment and Plan Additional Plan bilateral T tubes
--- NOTE | 2022-04-12 14:49 | PC.NURSE ---
Report to the Outpatient Waiting Room, entrance under the green pavilion located off [address], at time __0700_ on date ___[id number]____. OR Time: ___09__. - You and your visitor will be asked a series of questions to screen for COVID 19 for your protection. - Only one visitor is allowed at this time. - The patient visitor is requested to leave or wait in car when not with patient. - A mask is required within the hospital. Patients may have clear liquids (water, carbonated beverages, clear teas, apple juice) until 3 hours prior to surgery with a maximum of 20 ounces. NOTHING TO DRINK AFTER 0600 - No food from midnight until time of surgery - Infants may have breast milk until 4 hours before surgery, infant formula 6 hours prior to surgery. - Children will be allowed to drink immediately following surgery. If applicable, please bring a bottle or sippy cup to assist with drinking. Juice, water, soda, and popsicles are readily available. For infants on formula, please bring formula the day of surgery. Pacifiers are allowed. Take the following medications with a SIP of water the morning of surgery: INHALER NEEDED____ Medications to discontinue per physician WEIGHT LOSS PILL Date to take last syur 2-70-49 Please no make-up, nail romanian, hairspray, perfume, deodorant, or body powder the day of surgery. No jewelry (including any body piercings) or valuables the day of surgery, leave them at home. Please take a shower or bath the night before, or the morning of, surgery with an antibacterial soap. Wear comfortable, loose fitting clothing. Children are encouraged to wear pajamas. - Jewelry must be removed prior to entering the operating room. Rings and piercings that are not removed may be cut off. - The hospital will not accept responsibility for valuables. - Please leave all valuables, including medications, at home the day of surgery. If you are going home after surgery, a licensed courier delivery driver must drive you home. - NO public transportation without another adult. - We recommend that an adult stay with you for 24 hours following discharge. - We also recommend that you do not drive, make important decision, drink alcoholic beverages, or take any drugs that were not prescribed by your health care provider for at least 24 hours after your discharge time. For Pediatric surgeries, we recommend two adults accompany the child home (only one inside the building at this time). Follow any additional instructions given to you from your surgeon. If you or anyone in your household have experienced Covid symptoms in the past week, please notify your surgeon or the nurse liaison at the phone number below for possible testing. Telephone instructions given to ___PATIENT and asked if any additional questions and then verbalized understanding. Patient advised to call surgeon office or pre surgery nurse liaison [phone] if any additional questions.
--- NOTE | 2022-04-13 12:31 | P.HP_ITS ---
History of Present Illness History of Present Illness Consent: Risks, benefits, and alternatives have been discussed and questions answered. Patient agrees to proceed with procedure. Chief complaint: bilat chronic otitis media Narrative: Swathi Simpson is a 41 year old female [facility] Past Medical History Medical History Asthma COVID-19 (02/2022) Depression with anxiety Obstructive sleep apnea Tobacco use Surgical History Surgical History History of arthroscopy of right knee History of bladder surgery History of cholecystectomy History of hysterectomy History of tubal ligation History of tympanostomy tube placement History of umbilical hernia repair Family History Family History Mother Hypertension Thyroid disorder Sibling Asthma Grandparent Lymphoma Cerebrovascular accident Depression Grandparent Alcoholism Lung cancer Social History Social History Social History: Surrogate decision maker: Dario Simpson, spouse. Code status: Full code. Smoking packs per day: 1.5 Smoking cigarettes per day: 30.0 Years smoked: 20 Smoking pack-years: 30.00 Smoking status: Former smoker Tobacco type: cigarettes Second hand tobacco smoke exposure: Yes Smoking end date: 03/27/22 Alcohol intake: current Drinks per week: 8 Alcohol use details: 6-12 BEERS A WEEK Substance use: current Substance use type: marijuana Other substance usage details: SMOKE MARIJUANA Last use: 04-12-22 Additional living arrangements comments: Lives in [place] with spouse and children. Spiritual care concerns: No Meds Home Medications and Allergies Home Medications Medication Instructions Recorded Confirmed Type albuterol sulfate 90 mcg/actuation 1 puff inhalation Q4H PRN 07/13/21 04/12/22 History aerosol inhaler Shortness Of Breath phentermine 37.5 mg tablet 37.5 mg PO DAILY 02/23/22 04/12/22 History Allergies Allergy/AdvReac Type Severity Reaction Status Date / Time No Known Allergies Allergy Verified 04/12/22 14:42 Assessment and Plan Assessment and plan (1) Bilateral serous otitis media: Code(s): H65.93 - Unspecified nonsuppurative otitis media, bilateral Status: Acute Plan plan bilateral myringotomy and tubes
--- NOTE | 2022-04-18 06:34 | WPDHPUPDATE1 ---
History and Physical Update Update Date/Time: 04/18/22 06:34 History and Physical has been reviewed, including an updated exam of the patient. There are NO changes in the patient's condition. Risks, benefits, and alternatives have been discussed and questions answered. Patient agrees to proceed with procedure.
[2022-04-18 08:13] VITALS: BP 115/64; PULSE 73; RESP 16; TEMP 36.7; O2SAT 100
--- NOTE | 2022-04-18 08:21 | WPDANESEPPF ---
Anes - Initial Pre Proc Eval Procedure: Operation Date: 04/18/22 09:45 Proposed Procedures p Bilateral Myringotomy, Insertion Of Tubes - Olegario Perez MD Date/Time: 04/18/22 08:21 Surgeon: Olegario Perez MD Pre Op Diagnosis: bilat chronic otitis media Patient Data Age: 41 Gender: F Height: 1.66 m Weight: 82.8 kg Last Vital Signs Temp 36.7 C 04/18/22 08:13 Pulse 73 04/18/22 08:13 Resp 16 04/18/22 08:13 BP 115/64 04/18/22 08:13 Pulse Ox 100 04/18/22 08:13 O2 Del Method Room Air 04/18/22 08:13 Allergies Allergy/AdvReac Type Severity Reaction Status Date / Time No Known Allergies Allergy Verified 04/18/22 08:22 Home Medications Medication Instructions Recorded Confirmed Type albuterol sulfate 90 mcg/actuation 1 puff inhalation Q4H PRN 07/13/21 04/12/22 History aerosol inhaler Shortness Of Breath phentermine 37.5 mg tablet 37.5 mg PO DAILY 02/23/22 04/12/22 History Patient hx anesthesia problems: none Family hx anesthesia problems: none Results Review: All pre-operative results and documents have been reviewed as part of the pre-operative evaluation. [facility] Past Medical History Medical History Asthma COVID-19 (02/2022) Depression with anxiety Obstructive sleep apnea Tobacco use Surgical History Surgical History History of arthroscopy of right knee History of bladder surgery History of cholecystectomy History of hysterectomy History of tubal ligation History of tympanostomy tube placement History of umbilical hernia repair Family History Family History Mother Hypertension Thyroid disorder Sibling Asthma Grandparent Lymphoma Cerebrovascular accident Depression Grandparent Alcoholism Lung cancer Social History Social History Social History: Surrogate decision maker: Dario Dawsonkins, spouse. Code status: Full code. Smoking packs per day: 1.5 Smoking cigarettes per day: 30.0 Years smoked: 20 Smoking pack-years: 30.00 Smoking status: Former smoker Tobacco type: cigarettes Second hand tobacco smoke exposure: Yes Smoking end date: 03/27/22 Alcohol intake: current Drinks per week: 8 Alcohol use details: 6-12 BEERS A WEEK Substance use: current Substance use type: marijuana Other substance usage details: SMOKE MARIJUANA Last use: 04-12-22 Living arrangements: with family Additional living arrangements comments: Lives in [place] with spouse and children. Spiritual care concerns: No Anes - Eval Final PreProcedure Day of Procedure 04/18/22 08:21 Patient weight: overweight Heart: regular rate and rhythm Lungs: clear to auscultation Airway: Mallampati scale class II Neurological: alert and oriented Last oral intake: >/= 8 hours ASA classification: III Emergent: no Anesthetic plan: proceed Anesthesia type and monitoring: general and standard monitoring Results Review: All pre-operative results and documents have been reviewed as part of the pre-operative evaluation. Informed Consent: The patient's anesthetic plan and its attendant risks and benefits were discussed with the patient/family/POA. Questions were solicited and answers provided to the satisfaction of the patient/family/POA.
[2022-04-18] MEDS: ACETAMINOPHEN 500 MG TABLET 1000 MG PO (08:24)
[2022-04-18] MEDS: LACTATED RINGERS 1,000 ML 30 ML IV CONT (08:34)
[2022-04-18] MEDS: CIPROFLOXACIN HCL 0.3% OP SOLN 2.5 ML BTL 4 DROP EACH EAR (09:45)
[2022-04-18 09:52] VITALS: BP 95/59; PULSE 61; RESP 12; TEMP 36.9; O2SAT 100
--- NOTE | 2022-04-18 09:55 | P.OP_ITS ---
Procedure Note - Detailed Date of Procedure 04/18/22 Pre-op Diagnosis bilat chronic otitis media Post-op Diagnosis Same Procedure Performed Right myringotomy with T-tube Surgeon Olegario Perez MD Anesthesia General Description of Procedure Patient prepped and draped vision is anesthesia the right ear was inspected anterosuperior incision made a T-tube inserted left ear was inspected an old T- tube was removed was a large perforation underneath no tube was inserted patient returned recovery in good condition
[2022-04-18 10:05] VITALS: BP 94/68; PULSE 71; RESP 14; O2SAT 100
[2022-04-18 10:20] VITALS: BP 113/75; PULSE 73; RESP 12; O2SAT 100
[2022-04-18] MEDS: fentaNYL CITRATE INJ (*CRX) 100 MCG/2 ML VIAL 25 MCG IV PUSH ×4 (10:20→10:51)
[2022-04-18 10:35] VITALS: BP 117/81; PULSE 73; RESP 16; O2SAT 99
[2022-04-18 10:45] VITALS: BP 118/75; PULSE 75; RESP 16; O2SAT 99
[2022-04-18] MEDS: oxyCODONE HCL (*CRX) 5 MG TAB IR PO (11:07)
== END 2022-04-18 11:25 | disposition home or self-care (01) ==
PROVIDERS: PCP Family Medicine; Visit Provider Otolaryngology
PROC: (CPT 69436; principal; 2022-04-18 09:45)
DX: H65.93 Unspecified nonsuppurative otitis media, bilateral (principal); H66.93 Otitis media, unspecified, bilateral; G47.33 Obstructive sleep apnea (adult) (pediatric); F41.8 Other specified anxiety disorders; J45.909 Unspecified asthma, uncomplicated; Z86.16 Personal history of COVID-19; Z87.891 Personal history of nicotine dependence; F12.90 Cannabis use, unspecified, uncomplicated; Z79.51 Long term (current) use of inhaled steroids
CPT/HCPCS: 69436; A9270; J2704; J3010; J7120

== ENCOUNTER 2022-04-19 09:55 | Outpatient (CLI) | payer OTHER, SELFPAY ==
--- NOTE | ~2022-04-19 | XR_ITS ---
EXAMINATION: XR abdomen/kub 1V INDICATION: Right-sided abdominal pain TECHNIQUE: Supine views of the abdomen were obtained on 2 radiographs. COMPARISON: CT, 04/03/2022 FINDINGS: The bowel gas pattern is normal. There are no dilated loops of bowel. Cholecystectomy clips are noted. There are changes of mesh ventral hernia repair. The visualized lung bases are clear. IMPRESSION: 1. No radiographic correlate for the patient's symptoms. Reviewed, dictated and finalized at location A.
== END 2022-04-19 09:56 | disposition home or self-care (01) ==
PROVIDERS: PCP Family Medicine; Visit Provider Nurse Practitioner
DX: R79.89 Other specified abnormal findings of blood chemistry (principal)
CPT/HCPCS: 74018

== ENCOUNTER 2022-09-27 17:16 | Emergency (ER) | payer OTHER, SELFPAY ==
--- NOTE | 2022-09-27 17:17 | ED.EAR ---
HPI - Ear Problem General Chief complaint: Ear Stated complaint: Ears Irritation Time Seen by Provider: 09/27/22 17:17 Source: patient Mode of arrival: ambulatory Limitations: no limitations History of Present Illness HPI Narrative: Swathi is a 42-year-old female patient presenting to the clinic today with complaints of left ear pain. She reports she had cold symptoms approximately 1 week ago but over the last 1-2 days she developed left ear pain. Does have a history of chronic ear infections with a tube placed in the right ear drum Related Data Home Medications Medication Instructions Recorded Confirmed albuterol sulfate 90 mcg/actuation 1 puff inhalation Q4H PRN 07/13/21 05/25/22 aerosol inhaler Shortness Of Breath phentermine 37.5 mg tablet 37.5 mg PO DAILY 02/23/22 05/25/22 ipratropium bromide 17 inhalation 09/27/22 mcg/actuation HFA aerosol inhaler (Atrovent HFA) Allergies Allergy/AdvReac Type Severity Reaction Status Date / Time No Known Allergies Allergy Verified 09/27/22 17:19 Review of Systems Review of Systems: Pertinent positives per HPI. Patient denies any fever, chills, rash, headache, visual changes, dizziness, cough, runny nose, sore throat, shortness of breath, chest pain, palpitations, nausea, vomiting, diarrhea, constipation, abdominal pain, or any urinary issues. [facility] Past Medical History Medical History Asthma COVID-19 (02/2022) Depression with anxiety Obstructive sleep apnea Pancreatitis Tobacco use Surgical History Surgical History History of arthroscopy of right knee History of bladder surgery History of cholecystectomy History of hysterectomy History of tubal ligation History of tympanostomy tube placement History of umbilical hernia repair Family History Family History Mother Hypertension Thyroid disorder Sibling Asthma Grandparent Lymphoma Cerebrovascular accident Depression Grandparent Alcoholism Lung cancer Social History Social History Social History: Surrogate decision maker: Dario Simpson, spouse. Code status: Full code. Smoking packs per day: 1.5 Smoking cigarettes per day: 30.0 Years smoked: 20 Smoking pack-years: 30.00 Smoking status: Former smoker Tobacco type: cigarettes Second hand tobacco smoke exposure: Yes Smoking end date: 03/27/22 Alcohol intake: current Drinks per week: 8 Alcohol use details: 6-12 BEERS A WEEK Substance use: current Substance use type: marijuana Other substance usage details: SMOKE MARIJUANA Last use: 04-12-22 Additional living arrangements comments: Lives in [place] with spouse and children. Spiritual care concerns: No Comments At the time of my signature, I reviewed and agree with the nursing past medical, surgical, social, and family history. There is no relevant family history pertinent to the patient complaint. Exam Narrative: General: Well-developed, well nourished, in no apparent distress Head: Normocephalic, atraumatic Eyes: Pupils equally round and reactive to light bilaterally, EOM intact, sclera and conjunctive clear, no discharge, lids normal Ears: Right TM intact and clear- tube in place, left TM intact, red, bulging, ear canals clear, no drainage, grossly hearing normal. Nose: Nares patent, clear nasal discharge, no inflammation, no sinus tenderness. Mouth: Oropharynx without lesions or masses, good dentition, MMM. Neck: Supple, trachea midline, no enlargement of anterior or posterior cervical nodes, no thyroid masses or goiter palpable. Cardio: Regular rate and rhythm, s1 and s2 normal, no murmur appreciated. Resp: Clear to auscultation bilaterally anteriorly and posteriorly, no rhonchi, rales, wheezing or rubs Course Course Emergency Course: Portions
[2022-09-27 17:21] VITALS: BP 116/73; PULSE 85; RESP 16; TEMP 36.8; O2SAT 99
== END 2022-09-27 17:36 | disposition home or self-care (01) ==
PROVIDERS: Emergency Provider Nurse Practitioner Family; PCP Family Medicine
DX: H66.92 Otitis media, unspecified, left ear (principal); Z87.891 Personal history of nicotine dependence; F12.90 Cannabis use, unspecified, uncomplicated; J44.9 Chronic obstructive pulmonary disease, unspecified
CPT/HCPCS: 99213; G0463

== ENCOUNTER 2023-04-29 14:05 | Emergency (ER) | payer OTHER, SELFPAY ==
[2023-04-29 14:15] VITALS: BP 130/74; PULSE 85; RESP 16; TEMP 36.6; O2SAT 99
--- NOTE | 2023-04-29 14:31 | ED.SKABFB ---
HPI - Skin/Abscess/Foreign Bdy General Chief complaint: Skin/Abscess/Foreign Body Stated complaint: Rash/Bumps Source: patient Mode of arrival: ambulatory Limitations: no limitations History of Present Illness HPI narrative: 42-year-old female presents to [facility] with complaints of 2 possible insect bites to the medial aspect of her left ankle for the past 2-3 days. Patient reports redness and itching to the areas. Patient reports that she then noticed erythematous itchy rash to her neck and upper chest this morning. Patient denies shortness of breath, wheezing, fever, body aches, chills, nausea, vomiting or diarrhea. MD complaint: rash Location: neck and chest Relieving factors: none Exacerbating factors: none Associated symptoms: denies other symptoms Treatments prior to arrival: OTC topical medication Related Data Home Medications Medication Instructions Recorded Confirmed albuterol sulfate 90 mcg/actuation 1 puff inhalation Q4H PRN 07/13/21 04/29/23 aerosol inhaler Shortness Of Breath phentermine 37.5 mg tablet 37.5 mg PO DAILY 02/23/22 04/29/23 ipratropium bromide 17 2 puff inhalation DAILY 09/27/22 04/29/23 mcg/actuation HFA aerosol inhaler (Atrovent HFA) Allergies Allergy/AdvReac Type Severity Reaction Status Date / Time No Known Allergies Allergy Verified 04/29/23 14:08 Review of Systems Constitutional: Constitutional: Denies chills, Denies fatigue, Denies fever(s) and Denies weakness ENT: Denies dizziness, Denies epistaxis and Denies nasal congestion Cardiovascular: Cardiovascular: Denies chest pain Respiratory: Respiratory: Denies cough, Denies dyspnea and Denies wheezing Gastrointestinal: Gastrointestinal: Denies diarrhea, Denies nausea and Denies vomiting Integumentary/Breasts: Skin/Breast: Reports pruritus, Reports rash and Denies skin ulcer Neurologic: Denies dizziness, Denies syncope and Denies headache(s) [facility] Past Medical History Medical History Asthma COVID-19 (02/2022) Depression with anxiety Obstructive sleep apnea Pancreatitis Tobacco use Surgical History Surgical History History of arthroscopy of right knee History of bladder surgery History of cholecystectomy History of hysterectomy History of tubal ligation History of tympanostomy tube placement History of umbilical hernia repair Family History Family History Mother Hypertension Thyroid disorder Sibling Asthma Grandparent Lymphoma Cerebrovascular accident Depression Grandparent Alcoholism Lung cancer Social History Social History Social History: Surrogate decision maker: Dario Simpson, spouse. Code status: Full code. Smoking packs per day: 1.5 Smoking cigarettes per day: 30.0 Years smoked: 20 Smoking pack-years: 30.00 Smoking status: Former smoker Tobacco type: cigarettes Second hand tobacco smoke exposure: Yes Smoking end date: 03/27/22 Alcohol intake: current Drinks per week: 8 Alcohol use details: 6-12 BEERS A WEEK Substance use: current Substance use type: marijuana Other substance usage details: SMOKE MARIJUANA Last use: 04-12-22 Lack of Transportation: No Lack of Food: Never True Current Housing: I Have Housing Concerned About Future Housing: No Difficulty Paying Gas/Electric Bills: No Difficulty Paying for Meds: No Currently Unemployed: No Education: High School Diploma/GED Difficulty w/ Childcare or Family Care: No Living arrangements: with family Additional living arrangements comments: Lives in [place] with spouse and children. Spiritual care concerns: No Comments At time of signature, I agree with nursing past medical, surgical, social and family history. There is no relevant family history pertinent to the presenting complaint. Exam Const:
== END 2023-04-29 14:44 | disposition home or self-care (01) ==
PROVIDERS: Emergency Provider Nurse Practitioner Family; PCP Family Medicine
DX: L25.9 Unspecified contact dermatitis, unspecified cause (principal); S90.562A Insect bite (nonvenomous), left ankle, initial encounter; W57.XXXA Bitten or stung by nonvenomous insect and other nonvenomous arthropods, initial encounter; Z87.891 Personal history of nicotine dependence; F12.90 Cannabis use, unspecified, uncomplicated; J45.909 Unspecified asthma, uncomplicated; Z86.16 Personal history of COVID-19
CPT/HCPCS: 99213; G0463

== ENCOUNTER 2023-06-17 08:28 | Emergency (ER) | payer OTHER, SELFPAY ==
[2023-06-17 08:37] VITALS: BP 116/63; PULSE 87; RESP 16; TEMP 36.9; O2SAT 99
[2023-06-17 08:38] VITALS: BP 116/63; PULSE 87; RESP 16; TEMP 36.9; O2SAT 99
--- NOTE | 2023-06-17 08:47 | ED.EAR ---
HPI - Ear Problem General Chief complaint: Ear Stated complaint: right ear irritation Time Seen by Provider: 06/17/23 08:40 Source: patient Mode of arrival: ambulatory Limitations: no limitations History of Present Illness HPI Narrative: 43 y/o female presented for c/o possible insect in the right ear. States last night she was outside and thinks an insect flew in the ear, and had difficulty sleeping as a result. Used a carlos pin to the edge of the ear to help remove the bug. Endorses history of recurrent ear problems, and currently has T-tubes in place. Patient states the symptoms are difficult to describe, but denies pain, drainage, tinnitus, dizziness, n/v/d/f/c. MD Complaint: ear pain Related Data Home Medications Medication Instructions Recorded Confirmed albuterol sulfate 90 mcg/actuation 1 puff inhalation Q4H PRN 07/13/21 06/17/23 aerosol inhaler Shortness Of Breath phentermine 37.5 mg tablet 37.5 mg PO DAILY 02/23/22 06/17/23 ipratropium bromide 17 2 puff inhalation DAILY 09/27/22 06/17/23 mcg/actuation HFA aerosol inhaler (Atrovent HFA) dextroamphetamine-amphetamine 20 20 mg PO BID 06/17/23 06/17/23 mg tablet hydroxyzine HCl 25 mg tablet 25 mg PO TID 06/17/23 06/17/23 Allergies Allergy/AdvReac Type Severity Reaction Status Date / Time No Known Allergies Allergy Verified 06/17/23 08:32 Review of Systems Review of Systems: CONSTITUTIONAL: Denies malaise, chills, or fever. EYES: Denies visual changes, redness, or discharge. ENT: Denies rhinorrhea, congestion, sinus pain, and sore throat. Reports ear pain CARDIOVASCULAR: Denies chest pain, palpitations, or edema. RESPIRATORY: Denies cough or dyspnea. GASTROINTESTINAL: Denies abdominal pain, nausea, vomiting, diarrhea SKIN: Denies rash or itching. MUSCULOSKELETAL: Denies myalgia. NEUROLOGIC: Denies headache. All systems reviewed & are unremarkable except as noted in HPI and below PMFSH Past Medical History Medical History Asthma COVID-19 (02/2022) Depression with anxiety Obstructive sleep apnea Pancreatitis Tobacco use Surgical History Surgical History History of arthroscopy of right knee History of bladder surgery History of cholecystectomy History of hysterectomy History of tubal ligation History of tympanostomy tube placement History of umbilical hernia repair Family History Family History Mother Hypertension Thyroid disorder Sibling Asthma Grandparent Lymphoma Cerebrovascular accident Depression Grandparent Alcoholism Lung cancer Social History Social History Social History: Surrogate decision maker: Dario Simpson, spouse. Code status: Full code. Smoking packs per day: 1.5 Smoking cigarettes per day: 30.0 Years smoked: 20 Smoking pack-years: 30.00 Smoking status: Former smoker Tobacco type: cigarettes Second hand tobacco smoke exposure: Yes Smoking end date: 03/27/22 Alcohol intake: current Drinks per week: 8 Alcohol use details: 6-12 BEERS A WEEK Substance use: current Substance use type: marijuana Other substance usage details: SMOKE MARIJUANA Last use: 04-12-22 Lack of Transportation: No Lack of Food: Never True Current Housing: I Have Housing Concerned About Future Housing: No Difficulty Paying Gas/Electric Bills: No Difficulty Paying for Meds: No Currently Unemployed: No Education: High School Diploma/GED Difficulty w/ Childcare or Family Care: No Living arrangements: with family Additional living arrangements comments: Lives in [place] with spouse and children. Spiritual care concerns: No Comments At time of signature, agree with nursing past medical, surgical, social and family history. There is no relevant family history pertinent to the presenting complaint Exam N
== END 2023-06-17 08:50 | disposition home or self-care (01) ==
PROVIDERS: Emergency Provider Nurse Practitioner Family; PCP Family Medicine
DX: H92.01 Otalgia, right ear (principal); Z87.891 Personal history of nicotine dependence; F12.90 Cannabis use, unspecified, uncomplicated; J45.909 Unspecified asthma, uncomplicated; Z86.16 Personal history of COVID-19; F41.9 Anxiety disorder, unspecified
CPT/HCPCS: 99211; G0463

== ENCOUNTER 2023-10-03 11:54 | Emergency (ER) | payer OTHER, SELFPAY ==
--- NOTE | ~2023-10-03 | XR_ITS ---
EXAMINATION: XR finger 5th RT min 2V DATE: 10/03/2023 12:20 INDICATION: Right hand fifth digit injury. TECHNIQUE: 3 views of right hand fifth digit were obtained. COMPARISON: None. FINDINGS: Bone alignment is normal. No fracture. Joint spaces are normal. IMPRESSION: 1. No fracture. Reviewed, dictated and finalized at location A. [employer] IMPRESSION: 1. No fracture.
[2023-10-03 12:01] VITALS: BP 115/73; PULSE 78; RESP 16; TEMP 37.2; O2SAT 100
--- NOTE | 2023-10-03 12:14 | ED.UPPEXIN ---
HPI - Extremity Injury (Upper) General Chief Complaint: Extremity Injury, Upper Stated Complaint: Right Hand Finger Pain Time Seen by Provider: 10/03/23 12:14 Source: patient Mode of arrival: ambulatory Limitations: no limitations History of Present Illness HPI narrative: 43-year-old female presents with complaint pain to right middle finger. States that she was unpacking her suitcase and somehow injured her finger. Pain to distal aspect. Range of motion normal, no deformity noted. All Systems reviewed and negative except as noted above. Related Data Home Medications Medication Instructions Recorded Confirmed albuterol sulfate 90 mcg/actuation 1 puff inhalation Q4H PRN 07/13/21 10/03/23 aerosol inhaler Shortness Of Breath ipratropium bromide 17 2 puff inhalation DAILY 09/27/22 10/03/23 mcg/actuation HFA aerosol inhaler (Atrovent HFA) Allergies Allergy/AdvReac Type Severity Reaction Status Date / Time No Known Allergies Allergy Verified 10/03/23 12:01 Review of Systems Review of Systems: CONSTITUTIONAL: Denies fever, chills, or sweats. EYES: Denies visual changes, redness, or discharge. ENT: Denies rhinorrhea, congestion, sore throat, or otalgia. CARDIOVASCULAR: Denies chest pain, palpitations, or edema. RESPIRATORY: Denies cough or dyspnea. GASTROINTESTINAL: Denies abdominal pain, nausea, vomiting, or diarrhea. GENITOURINARY: Denies dysuria or hematuria. SKIN: Denies rash or itching. MUSCULOSKELETAL: Denies back pain, joint pain, or myalgia. reports pain to distal aspect right little finger. NEUROLOGIC: Denies headache, numbness, or weakness. PSYCHIATRIC: Denies anxiety or depression. All other systems reviewed are negative, except as documented in HPI. [facility] Past Medical History Medical History Asthma COVID-19 (02/2022) Depression with anxiety Obstructive sleep apnea Pancreatitis Tobacco use Surgical History Surgical History History of arthroscopy of right knee History of bladder surgery History of cholecystectomy History of hysterectomy History of tubal ligation History of tympanostomy tube placement History of umbilical hernia repair Family History Family History Mother Hypertension Thyroid disorder Sibling Asthma Grandparent Lymphoma Cerebrovascular accident Depression Grandparent Alcoholism Lung cancer Social History Social History Social History: Surrogate decision maker: Dario Simpson, spouse. Code status: Full code. Smoking packs per day: 1.5 Smoking cigarettes per day: 30.0 Years smoked: 20 Smoking pack-years: 30.00 Smoking status: Former smoker Tobacco type: cigarettes Second hand tobacco smoke exposure: Yes Smoking end date: 03/27/22 Alcohol intake: current Drinks per week: 8 Alcohol use details: 6-12 BEERS A WEEK Substance use: current Substance use type: marijuana Other substance usage details: SMOKE MARIJUANA Last use: 04-12-22 Lack of Transportation: No Lack of Food: Never True Current Housing: I Have Housing Concerned About Future Housing: No Difficulty Paying Gas/Electric Bills: No Difficulty Paying for Meds: No Currently Unemployed: No Education: High School Diploma/GED Difficulty w/ Childcare or Family Care: No Living arrangements: with family Additional living arrangements comments: Lives in [place] with spouse and children. Spiritual care concerns: No Comments At time of signature, agree with nursing past medical, surgical, social and family history. There is no relevant family history pertinent to the presenting complaint. Exam Narrative: GENERAL: This is a well-nourished, well-developed patient, in no apparent distress. HEAD: normocephalic, atraumatic. EYES: PERRL. Sclera clear/white. Vision is g
== END 2023-10-03 12:50 | disposition home or self-care (01) ==
PROVIDERS: Emergency Provider Nurse Practitioner Family; PCP Family Medicine
DX: S63.616A Unspecified sprain of right little finger, initial encounter (principal); X58.XXXA Exposure to other specified factors, initial encounter; J45.909 Unspecified asthma, uncomplicated; Z86.16 Personal history of COVID-19
CPT/HCPCS: 29130; 73140; 99213; G0463

== ENCOUNTER 2023-11-07 10:53 | Emergency (ER) | payer OTHER, SELFPAY ==
[2023-11-07 11:05] VITALS: BP 113/73; PULSE 97; RESP 16; TEMP 37.8; O2SAT 100
--- NOTE | 2023-11-07 11:40 | ED.URI ---
HPI - URI/Sore Throat General Chief Complaint: Upper Respiratory Infection Stated Complaint: sore throat,ear issue,lower back pain Time Seen by Provider: 11/07/23 11:40 Source: patient Mode of arrival: ambulatory Limitations: no limitations History of Present Illness HPI Narrative: 43-year-old female presents with complaint of sore throat, body aches, fatigue and chills for 3 days. Thinks that she had fever but unsure. Taking or pain. Denies nausea vomiting diarrhea. All systems reviewed and negative except as noted above. Related Data Home Medications Medication Instructions Recorded Confirmed albuterol sulfate 90 mcg/actuation 1 puff inhalation Q4H PRN 07/13/21 11/07/23 aerosol inhaler Shortness Of Breath ipratropium bromide 17 2 puff inhalation DAILY 09/27/22 11/07/23 mcg/actuation HFA aerosol inhaler (Atrovent HFA) Allergies Allergy/AdvReac Type Severity Reaction Status Date / Time No Known Allergies Allergy Verified 11/07/23 11:12 Review of Systems Review of Systems: CONSTITUTIONAL: reports fever, fatigue,chills, or sweats. EYES: Denies visual changes, redness, or discharge. ENT: Denies rhinorrhea, congestion . Reports sore throat in bilateral ear pain CARDIOVASCULAR: Denies chest pain, palpitations, or edema. RESPIRATORY: Denies cough or dyspnea. GASTROINTESTINAL: Denies abdominal pain, nausea, vomiting, or diarrhea. GENITOURINARY: Denies dysuria or hematuria. SKIN: Denies rash or itching. MUSCULOSKELETAL: Denies back pain, joint pain, or myalgia. NEUROLOGIC: Denies headache, numbness, or weakness. PSYCHIATRIC: Denies anxiety or depression. All other systems reviewed are negative, except as documented in HPI. [facility] Past Medical History Medical History Asthma COVID-19 (02/2022) Depression with anxiety Obstructive sleep apnea Pancreatitis Tobacco use Surgical History Surgical History History of arthroscopy of right knee History of bladder surgery History of cholecystectomy History of hysterectomy History of tubal ligation History of tympanostomy tube placement History of umbilical hernia repair Family History Family History Mother Hypertension Thyroid disorder Sibling Asthma Grandparent Lymphoma Cerebrovascular accident Depression Grandparent Alcoholism Lung cancer Social History Social History Social History: Surrogate decision maker: Dario Simpson, spouse. Code status: Full code. Smoking packs per day: 1.5 Smoking cigarettes per day: 30.0 Years smoked: 20 Smoking pack-years: 30.00 Smoking status: Former smoker Tobacco type: cigarettes Second hand tobacco smoke exposure: Yes Smoking end date: 03/27/22 Alcohol intake: current Drinks per week: 8 Alcohol use details: 6-12 BEERS A WEEK Substance use: current Substance use type: marijuana Other substance usage details: SMOKE MARIJUANA Last use: 04-12-22 Lack of Transportation: No Lack of Food: Never True Current Housing: I Have Housing Concerned About Future Housing: No Difficulty Paying Gas/Electric Bills: No Difficulty Paying for Meds: No Currently Unemployed: No Education: High School Diploma/GED Difficulty w/ Childcare or Family Care: No Living arrangements: with family Additional living arrangements comments: Lives in [place] with spouse and children. Spiritual care concerns: No Comments At time of signature, agree with nursing past medical, surgical, social and family history. There is no relevant family history pertinent to the presenting complaint. Exam Narrative: GENERAL: This is a well-nourished, well-developed patient, in no apparent distress. HEAD: normocephalic, atraumatic. EYES: PERRL. Sclera clear/white. Vision is grossly intact. EARS: External ears n
== END 2023-11-07 11:55 | disposition home or self-care (01) ==
PROVIDERS: Emergency Provider Nurse Practitioner Family; PCP Family Medicine
DX: J02.0 Streptococcal pharyngitis (principal); Z20.822 Contact with and (suspected) exposure to COVID-19; Z87.891 Personal history of nicotine dependence; J45.909 Unspecified asthma, uncomplicated
CPT/HCPCS: 87426; 87804; 87880; 99213; G0463

== ENCOUNTER 2023-12-10 16:59 | Emergency (ER) | payer MEDICAID, SELFPAY ==
[2023-12-10 17:17] VITALS: BP 118/78; PULSE 89; RESP 18; TEMP 37; O2SAT 97
--- NOTE | 2023-12-10 17:24 | ED.DENTAL ---
HPI - Dental/Oral General Chief complaint: Dental/Oral Stated complaint: thrush Time Seen by Provider: 12/10/23 17:34 Source: patient Mode of arrival: ambulatory Limitations: no limitations History of Present Illness HPI Narrative: 43-year-old female presents with concern for white spots on her tongue in the back of her throat. She reports she noticed them yesterday. She reports that feels unusual, it is not painful. She denies painful swallowing. She reports she took amoxicillin in October for 10 days. She also reports she uses an albuterol inhaler Related Data Allergies Allergy/AdvReac Type Severity Reaction Status Date / Time No Known Allergies Allergy Verified 12/10/23 17:22 Review of Systems Review of Systems: CONSTITUTIONAL: Denies malaise, chills, sweats, or fever. EYES: Denies visual changes ENT: Denies rhinorrhea, congestion, sinus pain, otalgia or sore throat. Reports white spots in her throat CARDIOVASCULAR: Denies chest pain, palpitations RESPIRATORY: Denies cough or dyspnea. SKIN: Denies rash or itching. MUSCULOSKELETAL: Denies myalgia. NEUROLOGIC: Denies numbness, weakness, or headache. All systems reviewed & are unremarkable except as noted in HPI and below PMFSH Past Medical History Medical History Asthma COVID-19 (02/2022) Depression with anxiety Obstructive sleep apnea Pancreatitis Tobacco use Surgical History Surgical History History of arthroscopy of right knee History of bladder surgery History of cholecystectomy History of hysterectomy History of tubal ligation History of tympanostomy tube placement History of umbilical hernia repair Family History Family History Mother Hypertension Thyroid disorder Sibling Asthma Grandparent Lymphoma Cerebrovascular accident Depression Grandparent Alcoholism Lung cancer Social History Social History Social History: Surrogate decision maker: Dario Simpson, spouse. Code status: Full code. Smoking packs per day: 1.5 Smoking cigarettes per day: 30.0 Years smoked: 20 Smoking pack-years: 30.00 Smoking status: Former smoker Tobacco type: cigarettes Second hand tobacco smoke exposure: Yes Smoking end date: 03/27/22 Alcohol intake: current Drinks per week: 8 Alcohol use details: 6-12 BEERS A WEEK Substance use: current Substance use type: marijuana Other substance usage details: SMOKE MARIJUANA Last use: 04-12-22 Lack of Transportation: No Lack of Food: Never True Current Housing: I Have Housing Concerned About Future Housing: No Difficulty Paying Gas/Electric Bills: No Difficulty Paying for Meds: No Currently Unemployed: No Education: High School Diploma/GED Difficulty w/ Childcare or Family Care: No Living arrangements: with family Additional living arrangements comments: Lives in [place] with spouse and children. Spiritual care concerns: No Comments At time of signature, agree with nursing past medical, surgical, social and family history. There is no relevant family history pertinent to the presenting complaint Exam Narrative: GENERAL: Well-appearing, well-nourished, and in no acute distress. HEAD: Normocephalic, atraumatic. EYES: PERRLA, sclera clear ENT: Nares clear. Mucous membranes moist. TM pearly sol with sharp light reflex bilaterally; no tragal tenderness. Oropharynx without erythema or lesions, white spots noted on the uvula and white coating on the tongue. Tonsils not enlarged and without exudate. NECK: Supple. No lymphadenopathy. CHEST: No respiratory distress. Speaks in full sentences. HEART: Regular rate and rhythm. SKIN: Warm, dry, no visible rash. NEURO: Alert and oriented x3. PSYCH: Normal mood and affect Course Course Emergency Course: Patient is itzel
== END 2023-12-10 17:43 | disposition home or self-care (01) ==
PROVIDERS: Emergency Provider Nurse Practitioner; PCP Family Medicine
DX: B37.0 Candidal stomatitis (principal); Z87.891 Personal history of nicotine dependence; F12.90 Cannabis use, unspecified, uncomplicated; J45.909 Unspecified asthma, uncomplicated; Z86.16 Personal history of COVID-19
CPT/HCPCS: 99213; G0463

== ENCOUNTER 2024-01-14 08:54 | Emergency (ER) | payer MEDICAID, SELFPAY ==
[2024-01-14 09:07] VITALS: BP 116/72; PULSE 80; RESP 16; TEMP 36.5; O2SAT 98
--- NOTE | 2024-01-14 09:32 | ED.EXTPRO ---
HPI - Extremity Problem General Chief complaint: Extremity Problem,Nontraumatic Stated complaint: Left Knee Swelling Time Seen by Provider: 01/14/24 09:31 Source: patient and RN notes reviewed Mode of arrival: ambulatory Limitations: no limitations History of Present Illness HPI Narrative: 43-year-old female presents concern for left knee pain. She denies any injury or trauma. Denies any new activity, excessive activity. Reports symptoms started on Sunday. Reports she has been using ice, elevating the limb knee, taking Tylenol ibuprofen. Denies redness, warmth, open skin MD Complaint: extremity pain and extremity swelling Related Data Home Medications Medication Instructions Recorded Confirmed No Home Medications 01/14/24 01/14/24 Allergies Allergy/AdvReac Type Severity Reaction Status Date / Time No Known Allergies Allergy Verified 01/14/24 09:01 Review of Systems Review of Systems: CONSTITUTIONAL: Denies malaise, chills, sweats, or fever. CARDIOVASCULAR: Denies chest pain, palpitations, or edema. RESPIRATORY: Denies cough or dyspnea. SKIN: Denies rash or itching, bruising, redness MUSCULOSKELETAL: Reports left knee pain and swelling NEUROLOGIC: Denies numbness, weakness All systems reviewed & are unremarkable except as noted in HPI and below PMFSH Past Medical History Medical History Asthma COVID-19 (02/2022) Depression with anxiety Obstructive sleep apnea Pancreatitis Tobacco use Surgical History Surgical History History of arthroscopy of right knee History of bladder surgery History of cholecystectomy History of hysterectomy History of tubal ligation History of tympanostomy tube placement History of umbilical hernia repair Family History Family History Mother Hypertension Thyroid disorder Sibling Asthma Grandparent Lymphoma Cerebrovascular accident Depression Grandparent Alcoholism Lung cancer Social History Social History Social History: Surrogate decision maker: Dario Calvin, spouse. Code status: Full code. Smoking packs per day: 1.5 Smoking cigarettes per day: 30.0 Years smoked: 20 Smoking pack-years: 30.00 Smoking status: Former smoker Tobacco type: cigarettes Second hand tobacco smoke exposure: Yes Smoking end date: 03/27/22 Alcohol intake: current Drinks per week: 8 Alcohol use details: 6-12 BEERS A WEEK Substance use: current Substance use type: marijuana Other substance usage details: SMOKE MARIJUANA Last use: 04-12-22 Lack of Transportation: No Lack of Food: Never True Current Housing: I Have Housing Concerned About Future Housing: No Difficulty Paying Gas/Electric Bills: No Difficulty Paying for Meds: No Currently Unemployed: No Education: High School Diploma/GED Difficulty w/ Childcare or Family Care: No Living arrangements: with family Additional living arrangements comments: Lives in [place] with spouse and children. Spiritual care concerns: No Comments At time of signature, agree with nursing past medical, surgical, social and family history. There is no relevant family history pertinent to the presenting complaint Exam Narrative: GENERAL: Well-appearing, well-nourished, and in no acute distress. HEAD: Normocephalic, atraumatic. EYES: PERRLA, conjunctivae clear NECK: Supple. CHEST: Speaks in full sentences. No respiratory distress. HEART: Regular rate and rhythm. Normal and equal peripheral pulses. EXTREMITIES: Left knee has grossly normal strength and sensation, grossly normal range of motion. Moderate anterior edema, no erythema, ecchymosis. Normal sensation with sensitivity to light touch and pain. No point tenderness. No open wounds, no skin tenting, no devitalized tissue or atrophy, no trophic changes, n
== END 2024-01-14 09:48 | disposition home or self-care (01) ==
PROVIDERS: Emergency Provider Nurse Practitioner; PCP Family Medicine
DX: M25.562 Pain in left knee (principal); Z87.891 Personal history of nicotine dependence; J45.909 Unspecified asthma, uncomplicated; Z86.16 Personal history of COVID-19
CPT/HCPCS: 99212; G0463

== ENCOUNTER 2024-03-19 13:47 | Outpatient (CLI) | payer OTHER, SELFPAY ==
--- NOTE | ~2024-03-19 | CT_ITS ---
EXAMINATION: CT sinus wo con DATE: 03/19/2024 14:01 INDICATION: Chronic sinusitis, unspecified. TECHNIQUE: Computed tomography (CT) of the paranasal sinuses was performed without intravenous contra st. Iterative reconstruction technique was employed. The dose-length product was 286.97 mGy-cm. COMPARISON: None FINDINGS: There is mild mucosal thickening in left frontal recess and the left ethmoid sinuses. There is near complete opacification of left maxillary sinus. There is mild mucosal thickening in right ma xillary sinus and right sphenoid sinus. There is seven bullosa involving left middle turbinate. Left ostiomeatal unit is occluded at the hiatus semilunaris and infundibulum. There is a right-sided Mustafa er cell. Right ostiomeatal unit is patent. There is rightward deviation of the nasal septum with a ri ght lateral spur. IMPRESSION: 1. Mucosal thickening in the paranasal sinuses including near complete opacification of left maxillar y sinus with occluded left ostiomeatal unit. 2. Rightward deviation of the nasal septum. Reviewed, dictated and finalized at location A. IMPRESSION: 1. Mucosal thickening in the paranasal sinuses including near complete opacific ation of left maxillary sinus with occluded left ostiomeatal unit. 2. Rightward deviation of the nasal septum.
== END 2024-03-19 13:48 | disposition home or self-care (01) ==
LOC: ANHIMG 13:47
PROVIDERS: Visit Provider Otolaryngology
DX: J32.9 Chronic sinusitis, unspecified (principal); J34.2 Deviated nasal septum; J34.89 Other specified disorders of nose and nasal sinuses
CPT/HCPCS: 70486

== ENCOUNTER 2024-04-03 16:19 | Emergency (ER) | payer OTHER, SELFPAY ==
--- NOTE | 2024-04-03 16:20 | ED.URI ---
HPI - URI/Sore Throat General Chief Complaint: Asthma Stated Complaint: Trouble Breathing Time Seen by Provider: 04/03/24 16:20 Source: patient Mode of arrival: ambulatory Limitations: no limitations History of Present Illness HPI Narrative: Patient is a 43-year-old female presents with wheezing due to being out of albuterol inhaler. Patient has appointment with new PCP next week but they will not give her refill until they see her. Reports intermittent wheezes especially at night. Has chronic sinus issues that she is following up with ENT for Related Data Home Medications Medication Instructions Recorded Confirmed bupropion HCl 150 mg 24 hr tablet, mg PO 04/03/24 extended release buspirone 15 mg tablet mg 04/03/24 fluticasone propionate 50 intranasal 04/03/24 mcg/actuation nasal spray,suspension hydroxyzine HCl 25 mg tablet mg 04/03/24 ipratropium bromide 17 inhalation 04/03/24 mcg/actuation HFA aerosol inhaler (Atrovent HFA) Allergies Allergy/AdvReac Type Severity Reaction Status Date / Time No Known Allergies Allergy Verified 03/06/24 09:22 Review of Systems Review of Systems: All systems reviewed & are unremarkable except as noted in HPI and below Constitutional: Constitutional: Denies body ache(s), Denies chills, Denies fatigue, Denies fever(s), Denies headache(s), Denies malaise and Denies weakness Eyes: Eyes: Denies blurry vision, Denies itchy eyes and Denies loss of vision ENT: Denies otalgia, Denies headache(s), Denies nasal congestion, Denies sinus pain and Denies sore throat Cardiovascular: Cardiovascular: Denies chest pain, Denies irregular heart rhythm and Denies dyspnea Respiratory: Respiratory: Denies cough, Denies dyspnea and Reports wheezing Gastrointestinal: Gastrointestinal: Denies abdominal pain, Denies diarrhea, Denies nausea and Denies vomiting Musculoskeletal: Musculoskeletal: Denies back pain, Denies myalgias and Denies arthralgias Integumentary/Breasts: Skin/Breast: Denies pruritus and Denies rash Neurologic: Denies headache(s), Denies loss of vision and Denies weakness Psychiatric: Psychiatric: Reports no additional psychiatric complaints Endocrine: Endocrine: Denies fatigue Allergic/Immunologic: Allergic/Immunologic: Denies itchy eyes PMFSH Past Medical History Medical History Asthma COVID-19 (02/2022) Depression with anxiety Obstructive sleep apnea Pancreatitis Tobacco use Surgical History Surgical History History of arthroscopy of right knee History of bladder surgery History of cholecystectomy History of hysterectomy History of tubal ligation History of tympanostomy tube placement History of umbilical hernia repair Family History Family History Mother Hypertension Thyroid disorder Sibling Asthma Grandparent Lymphoma Cerebrovascular accident Depression Grandparent Alcoholism Lung cancer Social History Social History Social History: Surrogate decision maker: Dario Simpson, spouse. Code status: Full code. Smoking packs per day: 1.5 Smoking cigarettes per day: 30.0 Years smoked: 20 Smoking pack-years: 30.00 Smoking status: Former smoker Tobacco type: cigarettes Second hand tobacco smoke exposure: Yes Smoking end date: 03/27/22 Alcohol intake: current Drinks per week: 8 Alcohol use details: 6-12 BEERS A WEEK Substance use: current Substance use type: marijuana Other substance usage details: SMOKE MARIJUANA Last use: 04-12-22 Lack of Transportation: No Lack of Food: Never True Current Housing: I Have Housing Concerned About Future Housing: No Difficulty Paying Gas/Electric Bills: No Difficulty Paying for Meds: No Currently Unemployed: No Education: High School Diploma/GED Difficulty w/ Childcare or Family
[2024-04-03 16:27] VITALS: BP 121/58; PULSE 91; RESP 18; TEMP 36.9; O2SAT 99
== END 2024-04-03 16:45 | disposition home or self-care (01) ==
PROVIDERS: Emergency Provider Nurse Practitioner Family; PCP Family Medicine
DX: J45.901 Unspecified asthma with (acute) exacerbation (principal); Z87.891 Personal history of nicotine dependence; Z86.16 Personal history of COVID-19
CPT/HCPCS: 99211; G0463

== ENCOUNTER 2024-04-23 09:49 | Emergency (ER) | payer OTHER, SELFPAY ==
[2024-04-23 09:56] VITALS: BP 129/82; PULSE 76; RESP 16; TEMP 37.3; O2SAT 99
[2024-04-23 09:58] VITALS: BP 129/82; PULSE 76; RESP 16; TEMP 37.3; O2SAT 99
--- NOTE | 2024-04-23 10:39 | ECG_ITS ---
Test Date: 2024-04-23 10:48:01 Measurements Intervals [place] Rate: 62 P: 62 OK: 128 QRS: 69 QRSD: 85 T: 40 QT: 402 QTc: 409 Interpretive Statements SINUS RHYTHM BASELINE ARTIFACT- I, II, III, AVR, AVL, AVF NORMAL ECG No previous ECG available for comparison Electronically Signed On 04-23-2024 10:50:21 CDT by Herson Kingsley D.O.
--- NOTE | 2024-04-23 10:41 | ED.GENADULT ---
HPI - General Adult General Chief complaint: Unspecified Stated complaint: indigestion burping Time Seen by Provider: 04/23/24 10:19 Source: patient and RN notes reviewed Mode of arrival: ambulatory Limitations: no limitations History of Present Illness HPI narrative: Patient presents today complaining heartburn and belching symptoms since last night as well as chest pressure that she describes, ?like a cat sitting on my chest. ? She also reports that her , left arm doesn't feel like my right. Denies shortness of breath that is more than baseline. States she does have a history of GERD but does not currently take any daily control medication. She typically has current symptoms once a week that is controlled by Tums. She tried symptoms last night without relief in became anxious. Related Data Home Medications Medication Instructions Recorded Confirmed ipratropium bromide 17 See Rx Instructions .Route .COMPLEX 04/03/24 04/23/24 mcg/actuation HFA aerosol inhaler (Atrovent HFA) atorvastatin 10 mg tablet 10 mg PO DAILY 04/23/24 04/23/24 Allergies Allergy/AdvReac Type Severity Reaction Status Date / Time No Known Allergies Allergy Verified 04/23/24 09:57 Review of Systems Review of Systems: CONSTITUTIONAL: Denies body aches, fever, chills, or sweats. EYES: Denies visual changes, redness, or discharge. ENT: Denies rhinorrhea, congestion, sore throat, or otalgia. CARDIOVASCULAR: Denies chest pain, palpitations, or edema. + chest pressure RESPIRATORY: Denies cough or dyspnea. GASTROINTESTINAL: Denies abdominal pain, nausea, vomiting, or diarrhea. +Belching, heartburn GENITOURINARY: Denies dysuria or hematuria. SKIN: Denies rash, itching, or wounds. MUSCULOSKELETAL: Denies back pain, joint pain, or myalgia. NEUROLOGIC: Denies headache, numbness, tingling, or weakness. PSYCH: + anxiety PMFSH Past Medical History Medical History Asthma COVID-19 (02/2022) Depression with anxiety Obstructive sleep apnea Pancreatitis Tobacco use Surgical History Surgical History History of arthroscopy of right knee History of bladder surgery History of cholecystectomy History of hysterectomy History of tubal ligation History of tympanostomy tube placement History of umbilical hernia repair Family History Family History Mother Hypertension Thyroid disorder Sibling Asthma Grandparent Lymphoma Cerebrovascular accident Depression Grandparent Alcoholism Lung cancer Social History Social History Social History: Surrogate decision maker: Dario Simpson, spouse. Code status: Full code. Smoking packs per day: 1.5 Smoking cigarettes per day: 30.0 Years smoked: 20 Smoking pack-years: 30.00 Smoking status: Former smoker Tobacco type: cigarettes Second hand tobacco smoke exposure: Yes Smoking end date: 03/27/22 Alcohol intake: current Drinks per week: 8 Alcohol use details: 6-12 BEERS A WEEK Substance use: current Substance use type: marijuana Other substance usage details: SMOKE MARIJUANA Last use: 04-12-22 Lack of Transportation: No Lack of Food: Never True Current Housing: I Have Housing Concerned About Future Housing: No Difficulty Paying Gas/Electric Bills: No Difficulty Paying for Meds: No Currently Unemployed: No Education: High School Diploma/GED Difficulty w/ Childcare or Family Care: No Living arrangements: with family Additional living arrangements comments: Lives in [place] with spouse and children. Spiritual care concerns: No Comments At time of signature, I have reviewed and agree with nursing past medical, surgical, social and family history unless otherwise noted. Please see nursing chart for further information. There is no relevant family history pertinent to th
== END 2024-04-23 11:24 | disposition home or self-care (01) ==
PROVIDERS: Emergency Provider Nurse Practitioner; PCP Family Medicine
DX: R14.2 Eructation (principal); K21.9 Gastro-esophageal reflux disease without esophagitis; Z87.891 Personal history of nicotine dependence; J45.909 Unspecified asthma, uncomplicated; Z86.16 Personal history of COVID-19
CPT/HCPCS: 93005; 99213; G0463

== ENCOUNTER 2024-10-13 08:30 | Emergency (ER) | payer OTHER, SELFPAY ==
[2024-10-13 08:37] VITALS: BP 122/70; PULSE 72; RESP 16; TEMP 36.6; O2SAT 99
--- NOTE | 2024-10-13 08:59 | ED.FEMALEGU ---
HPI - Female Genitourinary General Chief complaint: Urogenital-Female Stated complaint: Vaginal Problems Time Seen by Provider: 10/13/24 08:59 Source: patient, RN notes reviewed and old records reviewed Mode of arrival: ambulatory Limitations: no limitations History of Present Illness HPI Narrative: 44-year-old female presents to the [facility] 3 day history of increasing vaginal itching, white thick discharge. Patient reports that she is on antibiotics for fluid in her ear. No treatment prior to arrival Onset (ago): day(s) (3) Treatment prior to arrival: none Related Data Home Medications ?Medication ?Instructions ?Recorded ?Confirmed ?Last Taken ?Type ipratropium bromide 17 See Rx Instructions .Route .COMPLEX 04/03/24 04/23/24 Unknown History mcg/actuation HFA aerosol inhaler (Atrovent HFA) atorvastatin 10 mg tablet 10 mg PO DAILY 04/23/24 04/23/24 Unknown History Allergies Allergy/AdvReac Type Severity Reaction Status Date / Time No Known Allergies Allergy Verified 04/23/24 09:57 Review of Systems Review of Systems: All systems reviewed & are unremarkable except as noted in HPI and below Constitutional: Constitutional: Reports no additional constitutional complaints ENT: Reports system reviewed and no additional complaints, except as documented Cardiovascular: Cardiovascular: Reports no additional cardiovascular complaints, Denies chest pain and Denies dyspnea Respiratory: Respiratory: Reports no additional respiratory complaints, Denies chest congestion, Denies cough and Denies dyspnea Genitourinary: Genitourinary: Reports as per HPI, Reports vaginal discharge and Reports vaginal pruritus Musculoskeletal: Musculoskeletal: Reports no additional musculoskeletal complaints Integumentary/Breasts: Skin/Breast: Reports system reviewed and no additional complaints, except as docu PMFSH Past Medical History Medical History Pancreatitis Tobacco use Asthma Obstructive sleep apnea COVID-19 (02/2022) Depression with anxiety Surgical History Surgical History History of tubal ligation History of hysterectomy History of arthroscopy of right knee History of umbilical hernia repair History of tympanostomy tube placement History of cholecystectomy History of bladder surgery Family History Family History Mother Hypertension Thyroid disorder Sibling Asthma Grandparent Lymphoma Cerebrovascular accident Depression Grandparent Alcoholism Lung cancer Social History Social History Social History: Surrogate decision maker: Dario Simpson, spouse. Code status: Full code. Smoking packs per day: 1.5 Smoking cigarettes per day: 30.0 Years smoked: 20 Smoking pack-years: 30.00 Smoking status: Former smoker Tobacco type: cigarettes Second hand tobacco smoke exposure: Yes Smoking end date: 03/27/22 Alcohol intake: current Drinks per week: 8 Alcohol use details: 6-12 BEERS A WEEK Substance use: current Substance use type: marijuana Other substance usage details: SMOKE MARIJUANA Last use: 04-12-22 Lack of Transportation: No Lack of Food: Never True Current Housing: I Have Housing Concerned About Future Housing: No Difficulty Paying Gas/Electric Bills: No Difficulty Paying for Meds: No Currently Unemployed: No Education: High School Diploma/GED Difficulty w/ Childcare or Family Care: No Living arrangements: with family Additional living arrangements comments: Lives in [place] with spouse and children. Spiritual care concerns: No Comments At the time of my signature, I reviewed and agree with the nursing past medical, surgical, social, and family history. There is no relevant family history pertinent to the patient complaint. Exam Const: General: cooperative, healthy appearing, comfortable, no acute distress, well developed, alert and well nourished Nutritional Appearance: well nourished Orientation/consciousness: patient oriented x3 Limitations: no limitations HENMT: Head: normal to inspection Face and sinus: normal facial exam and face symmetric Eyes: General: appearance normal, both eyes and all related structures Neck: Neck: normal visual inspection, full ROM, no lymphadenopathy and no meningeal signs Chest: Chest palpation & inspection: normal inspection of the chest Resp: Effort & Inspection: normal respiratory effort and able to speak in complete sentences Cardio: Rate: regular rate : Other: Based on signs, symptoms and the fact that she is on an antibiotic, most likely a yeast infection. Offer pelvic exam which patient politely declined at this time Skin: General skin exam: normal color and no rashes or lesions noted Neuro: General: patient oriented x3, gait normal, moves all extremities and no meningeal signs Cognition (Neuro): normal cognition Speech: normal speech Gait exam (Neuro): Normal gait present Extrem: General: normal to inspection, full ROM, capillary refill normal and normal gait Psych: Appearance: grossly normal and well kempt Mental Status: mental status grossly normal Speech and movement: Normal speech and movement present and Clear speech present Affect: normal affect Attitude: cooperative Course Course Level of Care: Express Care Visit Vital Signs Vital signs: Vital Signs Temperature 97.8 F 10/13/24 08:37 Pulse Rate 72 10/13/24 08:37 Respiratory Rate 16 10/13/24 08:37 Blood Pressure 122/70 10/13/24 08:37 Pulse Oximetry 99 10/13/24 08:37 Oxygen Delivery Room Air 10/13/24 08:37 Temperature 97.8 F 10/13/24 08:37 Pulse Rate 72 10/13/24 08:37 Respiratory Rate 16 10/13/24 08:37 Blood Pressure 122/70 10/13/24 08:37 Pulse Oximetry 99 10/13/24 08:37 Oxygen Delivery Room Air 10/13/24 08:37 Reviewed MDM - Female Genitourinary MDM Narrative Medical decision making narrative: Patient sitting comfortably in exam. Nontoxic, vitals stable. Patient in acute distress. Patient presents with 3 day history of vaginal itching, discharge. Patient recently antibiotics. Most likely yeast infection has no concern for STD at this time. Patient appropriate for outpatient treatment and follow-up Discharge instructions reviewed with patient, as well as provided in writing per nursing staff. The instructions also include specific and strict return/GO TO THE ER as well as f/u information. All questions have been answered, and the patient deny any further questions with discharge and discharge plan. Some parts of this dictation were generated by voice recognition software and may contain typographical and/or grammatical inaccuracies. Differential Diagnosis Differential diagnosis: Likely urinary tract infection, bacterial vaginosis and other (Yeast infection) Critical Care Time Critical Care Time Critical Care Time: No Discharge Plan Discharge Clinical Impression: Yeast infection Patient Disposition: Home, Self-Care Condition: Stable Instructions: Antibiotic Form, Yeast Infection (ED) Additional Instructions: Use Monistat topical yeast cream. Eating a yogurt today or taking a probiotic can help with symptoms. Finish the antibiotic that you were Follow-up with primary care provider if you develop new concerns Patient Language: Croatian Prescriptions: New fluconazole 150 mg tablet 150 mg PO ONCE Qty: 2 0RF Rx Instructions: Take 1 tablet today repeat 72 hours No Action Atrovent HFA 17 mcg/actuation HFA aerosol inhaler See Rx Instructions .ROUTE .COMPLEX Rx Instructions: Rx albuterol sulfate 90 mcg/actuation HFA aerosol inhaler 2 puff inhalation QID PRN (Reason: shortness of breath or wheezing) Qty: 6.7 0RF Atrovent HFA 17 mcg/actuation HFA aerosol inhaler 2 puff inhalation Q8H Qty: 12.9 0RF albuterol sulfate 2.5 mg /3 mL (0.083 %) solution for nebulization 2.5 mg inhalation Q6H Qty: 90 0RF atorvastatin 10 mg tablet 10 mg PO DAILY fluticasone propionate 50 mcg/actuation spray,suspension 2 spray INTRANASAL BID Qty: 48 1RF Follow-up/Referrals: Zuri,MD Salinas [Primary Care Provider] - 1 Week ([facility] care follow up ) Time of Disposition: 09:16
== END 2024-10-13 09:20 | disposition home or self-care (01) ==
PROVIDERS: Emergency Provider Nurse Practitioner; PCP Family Medicine
DX: B37.49 Other urogenital candidiasis (principal); Z87.891 Personal history of nicotine dependence
CPT/HCPCS: 99213; G0463

== ENCOUNTER 2025-03-31 08:53 | Emergency (ER) | payer OTHER, SELFPAY ==
--- NOTE | 2025-03-31 08:55 | ED_ITS ---
HPI - Back Pain/Injury General Chief Complaint: Back Pain/Injury Stated Complaint: lower back pain/pelvic pain Time Seen by Provider: 03/31/25 08:55 Source: patient Mode of arrival: ambulatory Limitations: no limitations History of Present Illness HPI Narrative: Swathi is a 44-year-old female patient presenting to the clinic today with complaints of low back pain/pelvic pressure x2 days. She reports last time she felt like this she had a UTI a couple weeks ago. States that she went to the ER on March 13 and received an IV antibiotic-ceftriaxone and 5 day course of oral antibiotics-cephalexin and she states she finished the medication entirely. Denies any fever but has had some chills. Denies low mid back pain. Recently had an x-ray done by her primary care doctor that showed some degenerative disc disease. She denies any injuries. Did take Pyridium last night. Denies any dysuria, frequency, urgency, or decreased urine output. History of hysterectomy, cholecystectomy, umbilical hernia surgery, and bladder sling surgery. Denies any vaginal discharge or odor. Denies any concern for STIs. Related Data Home Medications ?Medication ?Instructions ?Recorded ?Confirmed ?Last Taken ?Type ipratropium bromide 17 See Rx Instructions .Route .COMPLEX 04/03/24 04/23/24 Unknown History mcg/actuation HFA aerosol inhaler (Atrovent HFA) atorvastatin 10 mg tablet 10 mg PO DAILY 04/23/24 04/23/24 Unknown History phentermine 37.5 mg tablet mg 03/31/25 Unknown History Allergies Allergy/AdvReac Type Severity Reaction Status Date / Time No Known Allergies Allergy Verified 03/31/25 09:03 Review of Systems Review of Systems: Pertinent positives per HPI. Patient denies any fever, chills, rash, headache, visual changes, dizziness, cough, runny nose, sore throat, shortness of breath, chest pain, palpitations, nausea, vomiting, diarrhea, constipation, abdominal pain. [facility] Past Medical History Medical History Pancreatitis Tobacco use Asthma Obstructive sleep apnea COVID-19 (02/2022) Depression with anxiety Surgical History Surgical History History of tubal ligation History of hysterectomy History of arthroscopy of right knee History of umbilical hernia repair History of tympanostomy tube placement History of cholecystectomy History of bladder surgery Family History Family History Mother Hypertension Thyroid disorder Sibling Asthma Grandparent Lymphoma Cerebrovascular accident Depression Grandparent Alcoholism Lung cancer Social History Social History Social History: Surrogate decision maker: Dario Simpson, spouse. Code status: Full code. Smoking packs per day: 1.5 Smoking cigarettes per day: 30.0 Years smoked: 20 Smoking pack-years: 30.00 Smoking status: Former smoker Tobacco type: cigarettes Second hand tobacco smoke exposure: Yes Smoking end date: 03/27/22 Alcohol intake: current Drinks per week: 8 Alcohol use details: 6-12 BEERS A WEEK Substance use: current Substance use type: marijuana Other substance usage details: SMOKE MARIJUANA Last use: 04-12-22 Lack of Transportation: No Lack of Food: Never True Current Housing: I Have Housing Concerned About Future Housing: No Difficulty Paying Gas/Electric Bills: No Difficulty Paying for Meds: No Currently Unemployed: No Education: High School Diploma/GED Difficulty w/ Childcare or Family Care: No Living arrangements: with family Additional living arrangements comments: Lives in [place] with spouse and children. Spiritual care concerns: No Comments At the time of my signature, I reviewed and agree with the nursing past medical, surgical, social, and family history. There is no relevant family history pertinent to the patient complaint. Exam Narrative: General: Well-developed, well nourished, in no apparent distress Head: Normocephalic, atraumatic. Cardio: Regular rate and rhythm, s1 and s2 normal, no murmur appreciated. Resp: Clear to auscultation bilaterally, no rhonchi, rales, wheezing or rubs. Musculoskeletal: No deformity, non-tender to palpation, grossly normal range of motion, muscle strength strong and equal in BLE. SLT negative, patellar reflexes 2/4 bilaterally, negative foot drop, normal gait and station Course Course Emergency Course: Portions of this record may have been created with voice recognition software. Level of Care: Express Care Visit Vital Signs Vital signs: Vital Signs Temperature 36.4 C 03/31/25 09:00 Pulse Rate 88 03/31/25 09:00 Respiratory Rate 16 03/31/25 09:00 Blood Pressure 113/79 03/31/25 09:00 Pulse Oximetry 98 03/31/25 09:00 Oxygen Delivery Room Air 03/31/25 09:00 Temperature 36.4 C 03/31/25 09:00 Pulse Rate 88 03/31/25 09:00 Respiratory Rate 16 03/31/25 09:00 Blood Pressure 113/79 03/31/25 09:00 Pulse Oximetry 98 03/31/25 09:00 Oxygen Delivery Room Air 03/31/25 09:00 Vital signs reviewed MDM - Back Pain/Injury MDM Narrative Medical decision making narrative: At the time of visit patient is resting comfortably on the exam table. Patient appears to be nontoxic. Labs: Urinalysis dip was performed leukocytes and nitrates. We will send urine for culture Plan: I suspect patient has urinary tract infection. Prescription for Bactrim, Diflucan, and Pyridium was sent to the pharmacy. Supportive measures were discussed with the patient and they voiced understanding discharge instructions and agrees to treatment plan. Return precautions reviewed Differential Diagnosis Differential diagnosis: Likely lumbar radiculopathy, sciatica, strain of lumbar region, renal colic (Vaginal discharge, STIs, PID, BV) and pyelonephritis Lab Data Labs: Lab Results 03/31/25 Range/Units 09:07 POC Urine Color Yellow POC Urine Clarity Cloudy POC Urine pH 7.0 POC Ur Specif [place] 1.020 POC Urine Protein Negative (Negative) POC Ur Glucose (UA) Negative (Negative) POC Urine Ketones Negative (Negative) POC Urine Blood Negative (Negative) POC Urine Nitrite Positive (Negative) POC Urine Bilirubin Negative (Negative) POC Urine Urobilinogen 0.2 POC U Leukocyte Esteras 1+ (Negative) Discharge Plan Discharge Clinical Impression: Urinary tract infection Qualifiers: Urinary tract infection type: acute cystitis Hematuria presence: without hematuria Qualified Code(s): N30.00 - Acute cystitis without hematuria Patient Disposition: Home Condition: Stable Instructions: Antibiotic Form, Urinary Tract Infection in Women (ED) Additional Instructions: Urinalysis positive for leukocytes and nitrates. We will send urine for culture. Take Bactrim, Diflucan, and Pyridium as prescribed Increase fluids and stay well hydrated Wipe front to back. May use wet wipes. Avoid tub baths If sexually active- pee before and after intercourse. Wear cotton panties Avoid tight clothing up against the genitals Follow up with your PCP in 1 week if symptoms persist. Patient Language: Cypriot Prescriptions: New sulfamethoxazole-trimethoprim [Bactrim DS] 800-160 mg tablet 1 tablet PO Q12H 7 Days Qty: 14 0RF fluconazole 150 mg tablet 150 mg PO ONCE Qty: 2 0RF Rx Instructions: as a single dose. May repeat in 72 hours if needed. phenazopyridine [Pyridium] 200 mg tablet 200 mg PO TID PRN (Reason: pain) Qty: 6 0RF No Action Atrovent HFA 17 mcg/actuation HFA aerosol inhaler See Rx Instructions .ROUTE .COMPLEX Rx Instructions: Rx albuterol sulfate 90 mcg/actuation HFA aerosol inhaler 2 puff inhalation QID PRN (Reason: shortness of breath or wheezing) Qty: 6.7 0RF Atrovent HFA 17 mcg/actuation HFA aerosol inhaler 2 puff inhalation Q8H Qty: 12.9 0RF albuterol sulfate 2.5 mg /3 mL (0.083 %) solution for nebulization 2.5 mg inhalation Q6H Qty: 90 0RF atorvastatin 10 mg tablet 10 mg PO DAILY phentermine 37.5 mg tablet fluticasone propionate 50 mcg/actuation spray,suspension 2 spray INTRANASAL BID Qty: 48 1RF Follow-up/Referrals: Zuri,MD Salinas [Primary Care Provider] - Time of Disposition: 09:14 Quality NIHSS Nursing Documentation ED NIHSS nursing documentation: reviewed/agree
[2025-03-31 09:00] VITALS: BP 113/79; PULSE 88; RESP 16; TEMP 36.4; O2SAT 98
[2025-03-31 09:14] LABS: EDUAAPPEAR Cloudy; EDUABILI Negative (Negative); EDUABLOOD Negative (Negative); EDUACOLOR1 Yellow; EDUAGLUCOSE Negative (Negative); EDUAKETONE Negative (Negative); EDUALEUKO 1+ (Negative); EDUANITRATE Positive (Negative); EDUAPROTEIN Negative (Negative); EDUAUROBILI 0.2
== END 2025-03-31 09:25 | disposition home or self-care (01) ==
PROVIDERS: Emergency Provider Nurse Practitioner Family; PCP Family Medicine
DX: N30.00 Acute cystitis without hematuria (principal); Z87.891 Personal history of nicotine dependence; J45.909 Unspecified asthma, uncomplicated; Z86.16 Personal history of COVID-19
CPT/HCPCS: 81003; 87086; 99213; G0463

== ENCOUNTER 2025-04-18 08:08 | Emergency (ER) | payer OTHER, SELFPAY ==
[2025-04-18 08:12] VITALS: BP 103/53; PULSE 91; RESP 14; TEMP 36.6; O2SAT 98
--- NOTE | 2025-04-18 08:29 | ED_ITS ---
HPI - Female Genitourinary General Chief complaint: Urogenital-Female Stated complaint: urinary irritation Time Seen by Provider: 04/18/25 08:30 Source: patient Mode of arrival: ambulatory Limitations: no limitations History of Present Illness HPI Narrative: Swathi is a 44-year-old female patient presenting to the clinic today with complaints of bladder pressure and low back pain. She reports symptoms just started this morning. Rates pain 01/29. She was seen on March 31 and diagnosed with the UTI and was given prescription for Pyridium, Bactrim, and Diflucan. Her urine culture came back negative for any growth. Patient reports she took the medications and her symptoms improved. Denies any burning, frequency, or urgency with urination. Denies any nausea vomiting or fevers. Has low back pain-history of degenerative disc disease. Denies any numbness or tingling in her groin or any radiation of pain down bilateral lower extremities. No loss of bowel or bladder. No known injury. Denies any vaginal discharge. No concern for STIs. History of hysterectomy and bladder surgery. Last bowel movement was this morning and normal for the patient. Related Data Home Medications ?Medication ?Instructions ?Recorded ?Confirmed ?Last Taken ?Type ipratropium bromide 17 See Rx Instructions .Route .COMPLEX 04/03/24 04/23/24 Unknown History mcg/actuation HFA aerosol inhaler (Atrovent HFA) atorvastatin 10 mg tablet 10 mg PO DAILY 04/23/24 04/23/24 Unknown History phentermine 37.5 mg tablet mg 03/31/25 Unknown History Allergies Allergy/AdvReac Type Severity Reaction Status Date / Time No Known Allergies Allergy Verified 03/31/25 09:03 Review of Systems Review of Systems: Pertinent positives per HPI. Patient denies any fever, chills, rash, headache, visual changes, dizziness, cough, runny nose, sore throat, shortness of breath, chest pain, palpitations, nausea, vomiting, diarrhea, constipation. PMFSH Past Medical History Medical History Pancreatitis Tobacco use Asthma Obstructive sleep apnea COVID-19 (02/2022) Depression with anxiety Surgical History Surgical History History of tubal ligation History of hysterectomy History of arthroscopy of right knee History of umbilical hernia repair History of tympanostomy tube placement History of cholecystectomy History of bladder surgery Family History Family History Mother Hypertension Thyroid disorder Sibling Asthma Grandparent Lymphoma Cerebrovascular accident Depression Grandparent Alcoholism Lung cancer Social History Social History Social History: Surrogate decision maker: Dario Simpson, spouse. Code status: Full code. Smoking packs per day: 1.5 Smoking cigarettes per day: 30.0 Years smoked: 20 Smoking pack-years: 30.00 Smoking status: Former smoker Tobacco type: cigarettes Second hand tobacco smoke exposure: Yes Smoking end date: 03/27/22 Alcohol intake: current Drinks per week: 8 Alcohol use details: 6-12 BEERS A WEEK Substance use: current Substance use type: marijuana Other substance usage details: SMOKE MARIJUANA Last use: 04-12-22 Lack of Transportation: No Lack of Food: Never True Current Housing: I Have Housing Concerned About Future Housing: No Difficulty Paying Gas/Electric Bills: No Difficulty Paying for Meds: No Currently Unemployed: No Education: High School Diploma/GED Difficulty w/ Childcare or Family Care: No Living arrangements: with family Additional living arrangements comments: Lives in [place] with spouse and children. Spiritual care concerns: No Comments At the time of my signature, I reviewed and agree with the nursing past medical, surgical, social, and family history. There is no relevant family history pertinent to the patient complaint. Course Course Emergency Course: Portions of this record may have been created with voice recognition software. Level of Care: Express Care Visit Vital Signs Vital signs: Vital signs reviewed MDM - Female Genitourinary MDM Narrative Medical decision making narrative: At the time of visit patient is resting comfortably on the exam table. Patient appears to be nontoxic. Labs: Urinalysis shows trace of leukocytes and trace of blood. We will send urine for culture Plan: I suspect patient has bladder pressure and low back pain. Prescription for Pyridium was sent to the pharmacy. Last culture was negative for any bacterial growth. We will send urine for culture and if positive will send in prescription for antibiotics at that time. Recommend follow-up with urologist. Supportive measures were discussed with the patient and they voiced understanding discharge instructions and agrees to treatment plan. Return precautions reviewed Differential Diagnosis Differential diagnosis: Likely urinary tract infection, bacterial vaginosis, trichomoniasis, cervicitis, vaginitis, ruptured ovarian cyst, cystitis, dysmenorrhea and other (Pyelonephritis, ureterolithiasis, acute on chronic low back pain, constipation) Discharge Plan Discharge Clinical Impression: Sensation of pressure in bladder area Acute low back pain Qualifiers: Back pain laterality: midline Sciatica presence: without sciatica Qualified Code(s): M54.50 - Low back pain, unspecified Patient Disposition: Home Condition: Stable Instructions: Antibiotic Form, Acute Low Back Pain (ED), Interstitial Cystitis (ED) Additional Instructions: Urinalysis shows trace of leukocytes and trace of blood. Your last urine culture was negative for any bacteria. We will send urine for culture today and if this comes back positive we will call you in start you on antibiotics. Take Pyridium as prescribed May take Tylenol/Motrin as needed for pain Increase fluids and stay well hydrated Wipe front to back. May use wet wipes. Avoid tub baths If sexually active- pee before and after intercourse. Wear cotton panties Avoid tight clothing up against the genitals Follow up with your PCP in 1 week if symptoms persist. Patient Language: Kyrgyz Prescriptions: New phenazopyridine [Pyridium] 200 mg tablet 200 mg PO TID PRN (Reason: pain) Qty: 6 0RF No Action Atrovent HFA 17 mcg/actuation HFA aerosol inhaler See Rx Instructions .ROUTE .COMPLEX Rx Instructions: Rx albuterol sulfate 90 mcg/actuation HFA aerosol inhaler 2 puff inhalation QID PRN (Reason: shortness of breath or wheezing) Qty: 6.7 0RF Atrovent HFA 17 mcg/actuation HFA aerosol inhaler 2 puff inhalation Q8H Qty: 12.9 0RF albuterol sulfate 2.5 mg /3 mL (0.083 %) solution for nebulization 2.5 mg inhalation Q6H Qty: 90 0RF atorvastatin 10 mg tablet 10 mg PO DAILY phentermine 37.5 mg tablet sulfamethoxazole-trimethoprim [Bactrim DS] 800-160 mg tablet 1 tablet PO Q12H 7 Days Qty: 14 0RF fluconazole 150 mg tablet 150 mg PO ONCE Qty: 2 0RF Rx Instructions: as a single dose. May repeat in 72 hours if needed. phenazopyridine [Pyridium] 200 mg tablet 200 mg PO TID PRN (Reason: pain) Qty: 6 0RF fluticasone propionate 50 mcg/actuation spray,suspension 2 spray INTRANASAL BID Qty: 48 1RF Follow-up/Referrals: Zuri,MD Salinas [Primary Care Provider] - Time of Disposition: 08:35 Quality NIHSS Nursing Documentation ED NIHSS nursing documentation: reviewed/agree
[2025-04-18 12:43] LABS: EDUAAPPEAR Clear; EDUABILI Negative (Negative); EDUABLOOD Trace (Negative); EDUACOLOR1 Yellow; EDUAGLUCOSE Negative (Negative); EDUAKETONE Negative (Negative); EDUALEUKO Trace (Negative); EDUANITRATE Negative (Negative); EDUAPH 5.5; EDUAPROTEIN Negative (Negative); EDUASPGRAVITY 1.025; EDUAUROBILI 0.2
== END 2025-04-18 08:40 | disposition home or self-care (01) ==
PROVIDERS: Emergency Provider Nurse Practitioner Family; PCP Family Medicine
DX: R39.89 Other symptoms and signs involving the genitourinary system (principal); M54.50 Low back pain, unspecified; Z87.891 Personal history of nicotine dependence; J45.909 Unspecified asthma, uncomplicated; Z86.16 Personal history of COVID-19
CPT/HCPCS: 81003; 87086; 99213; G0463